=== PATIENT | female | born 1950 | race Caucasian/White ===

== ENCOUNTER 2018-11-16 17:28 | Inpatient (IN) ==
[2018-11-16 18:45] LABS: Basophils % 0.4 %; Eosinophils # 0.1 K/mcL (0.0-0.6); Eosinophils % 1.1 %; Hematocrit 34.5 % (35.3-44.9); Hemoglobin 10.7 g/dL (11.5-15.4); Immature Granulocytes % 0.4 % (0-4); Lymphocytes # 0.7 K/mcL (0.6-4.6); Lymphocytes % 9.6 %; Mean Corpuscular Hemoglobin 28.5 pg (28.0-33.3); Mean Corpuscular Volume 91.8 fL (83.0-100.0); Mean Platelet Volume 11.2 fL (9.4-12.4); Monocytes # 0.6 K/mcL (0.0-1.3); Neutrophils # 5.8 K/mcL (1.6-8.9); Platelet Count 162 K/mcL (140-400); Red Blood Count 3.76 M/mcL (3.82-4.97); Red Cell Distribution Width 17.4 % (11.5-14.5); Segmented Neutrophils % 80.5 %; White Blood Count 7.2 K/mcL (4.3-11.1)
[2018-11-16 19:05] LABS: Troponin I 0.03 ng/mL (< 0.04)
[2018-11-16 19:29] LABS: Albumin 3.5 g/dL (3.5-5.7); Albumin/Globulin Ratio 1.5 (1.1-2.2); Bilirubin,Direct 0.1 mg/dL (0.0-0.2); Bilirubin,Indirect 0.4 mg/dL (0.0-1.2); Bilirubin,Total 0.5 mg/dL (0.3-1.0); Calcium 9.2 mg/dL (8.6-10.3); Globulin 2.4 g/dL (2.4-3.5); Magnesium 2.3 mg/dL (1.6-2.6); Potassium 4.9 mEq/L (3.5-5.1); Thyroid Stimulating Hormone 6.422 mcIU/mL (0.340-5.600); Total Protein 5.9 g/dL (6.4-8.9)
[2018-11-16] MEDS ORDERED: Furosemide 40 MG/4 ML VIAL IVP ONE (19:40)
[2018-11-16 21:08] LABS: Triiodothyronine (T3) Total 0.65 ng/mL (0.87-1.78)
[2018-11-16 23:12] LABS: Bacteria,Urine Few per hpf (None-Few); Bilirubin,Urine Negative (Negative); Blood,Urine Moderate (Negative); Clarity,Urine Clear (Clear); Color,Urine Yellow (Yellow); Glucose,Urine (UA) 100 mg/dL (Normal); Hyaline Casts,Urine None Seen per lpf (None-Few); Ketones,Urine Negative (Negative); Leukocyte Esterase,Urine Negative (Negative); Nitrite,Urine Negative (Negative); Protein,Urine >=1000 mg/dL (Neg-Trace); Specific Gravity,Urine 1.015 (1.010-1.025); Squamous Epithelial Cell,Urine Many per lpf (None-Few); Urobilinogen,Urine Normal (Normal)
[2018-11-16 23:17] LABS: Amphetamine Screen,Urine Negative ng/mL (Cutoff=1000); Barbiturate Screen,Urine Negative ng/mL (Cutoff=200); Benzodiazepines Screen,Urine Negative ng/mL (Cutoff=200); Cannabinoid Screen,Urine Negative ng/mL (Cutoff = 50); Cocaine Screen,Urine Negative ng/mL (Cutoff= 300); Opiate Screen,Urine Negative ng/mL (Cutoff=300); Phencyclidine Screen,Urine Negative ng/mL (Cutoff=25)
[2018-11-16 23:27] LABS: RBC,Urine 0-3 per hpf (0-3)
[2018-11-17] MEDS ORDERED: Naloxone 0.4 MG/ML INJ IVP PRN (00:17)
[2018-11-17] MEDS ORDERED: *HR* Dextrose 50 % in Water (Syg) 50 ML SYRINGE IVP PRN (01:00)
[2018-11-17] MEDS ORDERED: D5% in Water 1,000 ML IVC PRN (01:00)
[2018-11-17] MEDS ORDERED: Dextrose Gel 15 GM/37.5 ML TUBE PO PRN ×2 (01:00)
[2018-11-17] MEDS: Nystatin POWDER 30 GM BOTTLE TP SCH ×4 (02:48→20:26)
[2018-11-17] MEDS: *HR* Heparin 5,000 UNIT/ML VIAL SQ SCH ×2 (05:28→18:26)
[2018-11-17 06:37] LABS: Hematocrit 33.7 % (35.3-44.9); Hemoglobin 10.6 g/dL (11.5-15.4); Mean Corpuscular HGB Conc 31.5 g/dL (31.6-35.5); Mean Corpuscular Volume 92.1 fL (83.0-100.0); Mean Platelet Volume 11.3 fL (9.4-12.4); Platelet Count 155 K/mcL (140-400); Red Blood Count 3.66 M/mcL (3.82-4.97); Red Cell Distribution Width 17.2 % (11.5-14.5); White Blood Count 6.8 K/mcL (4.3-11.1)
[2018-11-17 07:04] LABS: Calcium 8.8 mg/dL (8.6-10.3); Potassium 4.6 mEq/L (3.5-5.1); Troponin I 0.03 ng/mL (< 0.04)
[2018-11-17] MEDS: Insulin LISPRO 300 UNITS/3 ML VIAL SQ SCH ×4 (08:46→20:13)
[2018-11-17] MEDS: Aspirin Enteric Coated 81 MG Tablet PO SCH (08:54)
[2018-11-17] MEDS: Gabapentin 400 MG CAPSULE PO SCH ×2 (08:54→20:22)
[2018-11-17] MEDS ORDERED: OXYCODONE HCL 10 MG PO PRN (10:21)
[2018-11-17] MEDS: NIFEdipine XL (24 HR) 30 MG TAB.ER.24 PO SCH (11:43)
[2018-11-17] MEDS: Spironolactone 25 MG TABLET PO SCH (12:16)
[2018-11-17] MEDS ORDERED: Perflutren Lipid Microsphere 1.3 ML in 0.9 % Sodium Chloride 8.7 ML IVP ONE (13:39)
[2018-11-17] MEDS: *HR* OxyCODONE Immed Rel 5 MG TABLET PO PRN (18:26)
[2018-11-18] MEDS: *HR* OxyCODONE Immed Rel 5 MG TABLET PO PRN ×3 (00:13→16:41)
[2018-11-18] MEDS: *HR* Heparin 5,000 UNIT/ML VIAL SQ SCH ×2 (05:02→16:40)
[2018-11-18] MEDS: Insulin LISPRO 300 UNITS/3 ML VIAL SQ SCH ×4 (08:15→21:38)
[2018-11-18] MEDS: NIFEdipine XL (24 HR) 30 MG TAB.ER.24 PO SCH (08:25)
[2018-11-18] MEDS: Gabapentin 400 MG CAPSULE PO SCH ×2 (08:25→21:39)
[2018-11-18] MEDS: Spironolactone 25 MG TABLET PO SCH (08:25)
[2018-11-18] MEDS: Aspirin Enteric Coated 81 MG Tablet PO SCH (08:25)
[2018-11-18] MEDS: Nystatin POWDER 30 GM BOTTLE TP SCH ×3 (08:30→21:43)
[2018-11-19] MEDS: *HR* Heparin 5,000 UNIT/ML VIAL SQ SCH ×2 (05:49→16:45)
[2018-11-19] MEDS: Insulin LISPRO 300 UNITS/3 ML VIAL SQ SCH ×4 (08:29→23:29)
[2018-11-19] MEDS: NIFEdipine XL (24 HR) 30 MG TAB.ER.24 PO SCH (08:56)
[2018-11-19] MEDS: Nystatin POWDER 30 GM BOTTLE TP SCH ×3 (08:57→21:11)
[2018-11-19] MEDS: Spironolactone 25 MG TABLET PO SCH (08:57)
[2018-11-19] MEDS: Aspirin Enteric Coated 81 MG Tablet PO SCH (08:57)
[2018-11-19] MEDS: Gabapentin 400 MG CAPSULE PO SCH ×2 (08:57→21:07)
[2018-11-19] MEDS: *HR* OxyCODONE Immed Rel 5 MG TABLET PO PRN ×2 (09:01→23:32)
[2018-11-19 12:15] LABS: Potassium 4.5 mEq/L (3.5-5.1)
[2018-11-20] MEDS: *HR* Heparin 5,000 UNIT/ML VIAL SQ SCH (06:41)
[2018-11-20 07:31] VITALS: BP 180/80
[2018-11-20] MEDS: NIFEdipine XL (24 HR) 30 MG TAB.ER.24 PO SCH (08:23)
[2018-11-20] MEDS: Aspirin Enteric Coated 81 MG Tablet PO SCH (08:24)
[2018-11-20] MEDS: Gabapentin 400 MG CAPSULE PO SCH (08:24)
[2018-11-20] MEDS: Spironolactone 25 MG TABLET PO SCH (08:25)
[2018-11-20] MEDS: *HR* OxyCODONE Immed Rel 5 MG TABLET PO PRN (08:30)
[2018-11-20] MEDS: Insulin LISPRO 300 UNITS/3 ML VIAL SQ SCH (08:32)
[2018-11-20] MEDS ORDERED: Furosemide 40 MG TABLET PO SCH (09:00)
== END 2018-11-20 11:09 | DRG 291 ==
LOC: EMEROOARM 17:28 → 2ANU 17:28 → SUATTDRO 20:39 → 2ANU 20:58
PROVIDERS: ADMIT Family Medicine; ATTEND Internal Medicine

== ENCOUNTER 2018-12-01 10:13 | Inpatient (IN) ==
[2018-12-01 10:55] LABS: Basophils % 0.4 %; Eosinophils # 0.2 K/mcL (0.0-0.6); Eosinophils % 2.5 %; Hematocrit 35.1 % (35.3-44.9); Hemoglobin 10.9 g/dL (11.5-15.4); Immature Granulocytes % 0.3 % (0-4); Lymphocytes # 0.6 K/mcL (0.6-4.6); Lymphocytes % 6.5 %; Mean Corpuscular HGB Conc 31.1 g/dL (31.6-35.5); Mean Corpuscular Hemoglobin 29.1 pg (28.0-33.3); Mean Corpuscular Volume 93.9 fL (83.0-100.0); Mean Platelet Volume 11.1 fL (9.4-12.4); Monocytes # 0.8 K/mcL (0.0-1.3); Monocytes % 8.3 %; Neutrophils # 7.7 K/mcL (1.6-8.9); Platelet Count 210 K/mcL (140-400); Red Blood Count 3.74 M/mcL (3.82-4.97); Red Cell Distribution Width 17.1 % (11.5-14.5); White Blood Count 9.4 K/mcL (4.3-11.1)
--- NOTE | 2018-12-01 11:00 | Emergency Department Note ---
Disposition Clinical Impression: Rectal bleeding CKD (chronic kidney disease) Qualifiers: Chronic kidney disease stage: unspecified stage Qualified Code(s): N18.9 - Chr onic kidney disease, unspecified Disposition: Admitted As Inpatient Condition: Good Referrals: Renetta Jaime MD [Primary Care Provider] - Forms: ED Satisfaction Letter Time of Disposition: 12:47 General Adult HPI - General Chief complaint: ED GI Bleed Stated complaint: Rectal Bleeding Time Seen by Provider: 12/01/18 10:16 Source: patient, family Mode of arrival: ambulatory Limitations: no limitations Nursing Notes Reviewed: Yes Vital Signs Reviewed: Yes - History of Present Illness HPI Narrative: 68-year-old female with significant past medical history of peptic ulcer disease and CHF presenting for rectal bleeding. Patient is currently on aspirin. She states yesterday she went to the bathroom and noticed bright red blood on the paper. Then she looked in the toilet and there was a significant amount of blood in the toilet. She states since then it has been leaking out of her rectum. Denies any clots. She does states she has had some dizziness since but denies any chest pain or shortness of breath. Denies any abdominal pain, nausea, or hemataemesis. Pain Scale: 1 - Related Data Home Medications Medication Instructions Recorded Confirmed Allopurinol [Zyloprim 100 MG] 100 mg PO DAILY 11/16/18 12/01/18 Aspirin [Lo-Dose Aspirin EC] 81 mg PO DAILY 11/16/18 12/01/18 Atorvastatin Calcium [Lipitor] 40 mg PO DAILY 11/16/18 12/01/18 Duloxetine HCl [Cymbalta] 60 mg PO DAILY 11/16/18 12/01/18 Furosemide [Lasix] 80 mg PO QAM 11/16/18 12/01/18 Gabapentin [Neurontin] 800 mg PO BID 11/16/18 12/01/18 NIFEdipine [Nifedipine ER] 90 mg PO DAILY 11/16/18 12/01/18 Nebivolol HCl [Bystolic] 20 mg PO DAILY 11/16/18 12/01/18 Olmesartan Medoxomil [Benicar] 40 mg PO DAILY 11/16/18 12/01/18 Spironolactone [Aldactone] 25 mg PO DAILY 11/16/18 12/01/18 Doxercalciferol [Hectorol] 2.5 mcg IV MOWEFR 11/17/18 12/01/18 Oxycodone HCl [Roxybond] 10 mg PO Q6H 11/17/18 12/01/18 Multivit-Min/Iron/Vitamin K [Adult 1 each PO 12/01/18 Multivitamin-Iron Tablet] Previous Rx's Medication Instructions Recorded Omeprazole [PriLOSEC] 20 mg PO DAILY #20 capsule. 11/20/18 Allergies Allergy/AdvReac Type Severity Reaction Status Date / Time Iodinated Contrast Media Allergy Hives Verified 11/16/18 18:16 [Iodinated Contrast- Oral and IV Dye] morphine Allergy Swelling Verified 11/16/18 18:16 of Lip/Tongue/Throat prednisone Allergy Swelling Verified 11/16/18 18:16 of Lip/Tongue/Throat pregabalin [From Lyrica] Allergy Hallucinati Verified 11/16/18 18:16 ng All systems ED: reviewed and negative except as stated. Constitutional: Denies: fever Eyes: Reports: as per HPI ENT ED: Reports: as per HPI Cardiovascular: Denies: chest pain Respiratory: Denies: dyspnea Gastrointestinal: Denies: abdominal pain Genitourinary: Reports: as per HPI Musculoskeletal: Reports: as per HPI Integumentary: Reports: as per HPI Neurological: Reports: other (dizziness) Psychiatric: Reports: as per HPI Endocrine: Reports: as per HPI Hematological/Lymphatic: Reports: as per HPI Allergic/Immunologic: Reports: as per HPI Past Medical History - Past Medical History Attestation: Yes The following information was validated with the patient. Medical history: Reports: CHF, diabetes, hypertension, renal disease - Social History Smoking Status: Never smoker Smokeless Tobacco Status: No Alcohol use: Reports: none Drug use: Reports: none Physical Exam - General Limitations: no limitations General appearance: alert, in no apparent distress - Head Head exam: atraumatic, normocephalic, normal inspection - Eye Eye exam: Absent: scleral icterus - ENT ENT exam: mucous membranes moist - Neck Neck exam: Present: full ROM - Chest Chest inspection: Present: symmetric chest wall rise - Respiratory Respiratory exam: Present: normal lung sounds bilaterally. Absent: respiratory distress, wheezes - Cardiovascular Cardiovascular exam: Present: regular rate, normal rhythm, normal heart sounds - Abdominal Exam Abdominal exam: Present: soft, Non-Tender. Absent: distention, guarding, rebound - Extremities Exam Extremities exam: Present: full ROM, other (2+ pitting edema bilateral lower extremities. Blistering noted to the bilateral anterior shins.) - Neurological Exam Neurological exam: Present: alert, oriented X3 - Psychiatric Psychiatric exam: Present: normal affect - Skin Skin exam: Present: warm Course Course Narrative: 68-year-old female presenting for rectal bleeding. In the room she is alert and oriented 3 and hemodynamically stable. Physical exam does show renee blood per rectum. Otherwise physical exam is benign. At this time will obtain basic laboratory analysis and recheck out to surgery senior contracts manager. I spoke with Dr. Cardoso who is on-call who is requesting a nuclear medicine scan for GI bleed. This will be added. Disposition will be admission pending laboratory analysis. Patient agrees with this plan. - Reevaluation(s) Reevaluation #1: Hemoglobin stable at 10.9. Otherwise laboratory analysis unchanged from baseline. Nuclear medicine GI bleed scan still pending. At this time patient remains alert and oriented 3 and hemodynamically stable. We will plan to admit the patient for further evaluation and treatment of her rectal bleeding. I spoke with the hospitalist senior contracts manager Dr. Phan who agrees to accept the patient at this time. Patient agrees with this plan. Vital Signs Temperature 95 F L 12/01/18 10:15 Pulse Rate 63 12/01/18 10:15 Respiratory Rate 18 12/01/18 10:15 Blood Pressure 183/84 12/01/18 10:15 O2 Sat by Pulse Oximetry 97 12/01/18 10:15 Temperature 98.7 F 12/01/18 10:21 Pulse Rate 63 12/01/18 10:21 Respiratory Rate 18 12/01/18 10:21 Blood Pressure 183/84 12/01/18 10:21 O2 Sat by Pulse Oximetry 95 12/01/18 10:21 Oxygen Delivery Oxygen Delivery Room Air Medical Decision Making - Lab Data Result diagrams: 12/01/18 10:35 12/01/18 10:35 Lab Results 12/01/18 12/01/18 12/01/18 Range/Units 10:24 10:35 10:35 WBC 9.4 (4.3-11.1) K/mcL RBC 3.74 L (3.82-4.97) M/mcL Hgb 10.9 L (11.5-15.4) g/dL Hct 35.1 L (35.3-44.9) % MCV 93.9 (83.0-100.0) fL MCH 29.1 (28.0-33.3) pg MCHC 31.1 L (31.6-35.5) g/dL RDW 17.1 H (11.5-14.5) % Plt Count 210 (140-400) K/mcL MPV 11.1 (9.4-12.4) fL Immature Gran % 0.3 (0-4) % Seg Neutrophils % 82.0 % Lymphocytes % 6.5 % Monocytes % 8.3 % Eosinophils % 2.5 % Basophils % 0.4 % Neutrophils # 7.7 (1.6-8.9) K/mcL Lymphocytes # 0.6 (0.6-4.6) K/mcL Monocytes # 0.8 (0.0-1.3) K/mcL Eosinophils # 0.2 (0.0-0.6) K/mcL Basophils # 0.0 (0.0-0.2) K/mcL Sodium (136-145) mEq/L Potassium (3.5-5.1) mEq/L Chloride (98-107) mEq/L Carbon Dioxide (23-29) mEq/L BUN (8-23) mg/dL Creatinine (0.60-1.20) mg/dL Est GFR ( Amer) (> 60) Est GFR (Non-Af Amer) (> 60) BUN/Creatinine Ratio (6-26) Glucose (70-105) mg/dL POC Glucose 177 H (70-99) mg/dL Calculated Osmolality (280-300) Calcium (8.6-10.3) mg/dL Total Bilirubin (0.3-1.0) mg/dL Direct Bilirubin (0.0-0.2) mg/dL Indirect Bilirubin (0.0-1.2) mg/dL AST (13-39) Units/L ALT (7-52) Units/L Alkaline Phosphatase (34-104) Units/L Serum Total Protein (6.4-8.9) g/dL Albumin (3.5-5.7) g/dL Globulin (2.4-3.5) g/dL Albumin/Globulin Ratio (1.1-2.2) Blood Type B POSITIVE Antibody Screen POSITIVE 12/01/18 Range/Units 10:35 WBC (4.3-11.1) K/mcL RBC (3.82-4.97) M/mcL Hgb (11.5-15.4) g/dL Hct (35.3-44.9) % MCV (83.0-100.0) fL MCH (28.0-33.3) pg MCHC (31.6-35.5) g/dL RDW (11.5-14.5) % Plt Count (140-400) K/mcL MPV (9.4-12.4) fL Immature Gran % (0-4) % Seg Neutrophils % % Lymphocytes % % Monocytes % % Eosinophils % % Basophils % % Neutrophils # (1.6-8.9) K/mcL Lymphocytes # (0.6-4.6) K/mcL Monocytes # (0.0-1.3) K/mcL Eosinophils # (0.0-0.6) K/mcL Basophils # (0.0-0.2) K/mcL Sodium 136 (136-145) mEq/L Potassium 5.4 H (3.5-5.1) mEq/L Chloride 104 (98-107) mEq/L Carbon Dioxide 24 (23-29) mEq/L BUN 47 H (8-23) mg/dL Creatinine 2.91 H (0.60-1.20) mg/dL Est GFR ( Amer) 19 L (> 60) Est GFR (Non-Af Amer) 16 L (> 60) BUN/Creatinine Ratio 16 (6-26) Glucose 182 H (70-105) mg/dL POC Glucose (70-99) mg/dL Calculated Osmolality 299 (280-300) Calcium 9.2 (8.6-10.3) mg/dL Total Bilirubin 0.5 (0.3-1.0) mg/dL Direct Bilirubin 0.1 (0.0-0.2) mg/dL Indirect Bilirubin 0.4 (0.0-1.2) mg/dL AST 12 L (13-39) Units/L ALT 9 (7-52) Units/L Alkaline Phosphatase 82 (34-104) Units/L Serum Total Protein 6.3 L (6.4-8.9) g/dL Albumin 3.5 (3.5-5.7) g/dL Globulin 2.8 (2.4-3.5) g/dL Albumin/Globulin Ratio 1.3 (1.1-2.2) Blood Type Antibody Screen - EKG Data EKG #1 EKG attestation: Yes I reviewed and interpreted this EKG. EKG results narrative: Sinus rhythm. Right bundle branch block. 63 beats for minute. MS interval 170, QRS 139, QTC 501. No sign of acute ST segment elevation or ischemia. Compared to previous EKG completed on 11/16/2018 no significant changes noted
[2018-12-01 11:13] LABS: Albumin 3.5 g/dL (3.5-5.7); Albumin/Globulin Ratio 1.3 (1.1-2.2); Bilirubin,Direct 0.1 mg/dL (0.0-0.2); Bilirubin,Indirect 0.4 mg/dL (0.0-1.2); Bilirubin,Total 0.5 mg/dL (0.3-1.0); Calcium 9.2 mg/dL (8.6-10.3); Globulin 2.8 g/dL (2.4-3.5); Potassium 5.4 mEq/L (3.5-5.1); Total Protein 6.3 g/dL (6.4-8.9)
--- NOTE | 2018-12-01 12:30 | Emergency Department Note ---
Disposition Clinical Impression: Rectal bleeding CKD (chronic kidney disease) Qualifiers: Chronic kidney disease stage: unspecified stage Qualified Code(s): N18.9 - Chr onic kidney disease, unspecified Disposition: Admitted As Inpatient Condition: Good Referrals: Renetta Jaime MD [Primary Care Provider] - Forms: ED Satisfaction Letter Time of Disposition: 12:30 General Adult HPI - General Chief complaint: ED GI Bleed Stated complaint: Rectal Bleeding Time Seen by Provider: 12/01/18 10:16 Source: patient, family Mode of arrival: ambulatory Limitations: no limitations - History of Present Illness Pain Scale: 1 - Related Data Home Medications Medication Instructions Recorded Confirmed Allopurinol [Zyloprim 100 MG] 100 mg PO DAILY 11/16/18 11/17/18 Aspirin [Lo-Dose Aspirin EC] 81 mg PO DAILY 11/16/18 11/17/18 Atorvastatin Calcium [Lipitor] 40 mg PO DAILY 11/16/18 11/17/18 Duloxetine HCl [Cymbalta] 60 mg PO DAILY 11/16/18 11/17/18 Furosemide [Lasix] 80 mg PO QAM 11/16/18 11/17/18 Gabapentin [Neurontin] 800 mg PO BID 11/16/18 11/17/18 Glimepiride [Amaryl] 4 mg PO BID 11/16/18 11/17/18 NIFEdipine [Nifedipine ER] 90 mg PO DAILY 11/16/18 11/17/18 Nebivolol HCl [Bystolic] 20 mg PO DAILY 11/16/18 11/17/18 Olmesartan Medoxomil [Benicar] 40 mg PO DAILY 11/16/18 11/17/18 Spironolactone [Aldactone] 25 mg PO DAILY 11/16/18 11/17/18 Sucralfate [Carafate] 1 gm PO TID 11/16/18 11/17/18 Doxercalciferol [Hectorol] 2.5 mcg IV MOWEFR 11/17/18 11/17/18 Oxycodone HCl [Roxybond] 10 mg PO Q6H PRN 11/17/18 11/17/18 Previous Rx's Medication Instructions Recorded Nystatin POWDER [Nystop] 1 appl TP TID #2 bottle 11/20/18 Omeprazole [PriLOSEC] 20 mg PO DAILY #20 capsule. 11/20/18 OxyCODONE Immed Rel [Roxicodone 10 10 mg PO Q6HR PRN 5 Days #20 tab 11/20/18 MG] Allergies Allergy/AdvReac Type Severity Reaction Status Date / Time Iodinated Contrast Media Allergy Hives Verified 11/16/18 18:16 [Iodinated Contrast- Oral and IV Dye] morphine Allergy Swelling Verified 11/16/18 18:16 of Lip/Tongue/Throat prednisone Allergy Swelling Verified 11/16/18 18:16 of Lip/Tongue/Throat pregabalin [From Lyrica] Allergy Hallucinati Verified 11/16/18 18:16 ng Constitutional: Denies: fever Eyes: Reports: as per HPI ENT ED: Reports: as per HPI Cardiovascular: Denies: chest pain Respiratory: Denies: dyspnea Gastrointestinal: Denies: abdominal pain Genitourinary: Reports: as per HPI Musculoskeletal: Reports: as per HPI Integumentary: Reports: as per HPI Neurological: Reports: other (dizziness) Psychiatric: Reports: as per HPI Endocrine: Reports: as per HPI Hematological/Lymphatic: Reports: as per HPI Allergic/Immunologic: Reports: as per HPI Past Medical History - Past Medical History Medical history: Reports: CHF, diabetes, hypertension, renal disease - Social History Smoking Status: Never smoker Smokeless Tobacco Status: No Alcohol use: Reports: none Drug use: Reports: none Physical Exam - General Limitations: no limitations General appearance: alert, in no apparent distress Course Vital Signs Temperature 95 F L 12/01/18 10:15 Pulse Rate 63 12/01/18 10:15 Respiratory Rate 18 12/01/18 10:15 Blood Pressure 183/84 12/01/18 10:15 O2 Sat by Pulse Oximetry 97 12/01/18 10:15 Temperature 98.7 F 12/01/18 10:21 Pulse Rate 63 12/01/18 10:21 Respiratory Rate 18 12/01/18 10:21 Blood Pressure 183/84 12/01/18 10:21 O2 Sat by Pulse Oximetry 95 12/01/18 10:21 Oxygen Delivery Oxygen Delivery Room Air Medical Decision Making - Lab Data Result diagrams: 12/01/18 10:35 12/01/18 10:35 Lab Results 12/01/18 12/01/18 12/01/18 Range/Units 10:24 10:35 10:35 WBC 9.4 (4.3-11.1) K/mcL RBC 3.74 L (3.82-4.97) M/mcL Hgb 10.9 L (11.5-15.4) g/dL Hct 35.1 L (35.3-44.9) % MCV 93.9 (83.0-100.0) fL MCH 29.1 (28.0-33.3) pg MCHC 31.1 L (31.6-35.5) g/dL RDW 17.1 H (11.5-14.5) % Plt Count 210 (140-400) K/mcL MPV 11.1 (9.4-12.4) fL Immature Gran % 0.3 (0-4) % Seg Neutrophils % 82.0 % Lymphocytes % 6.5 % Monocytes % 8.3 % Eosinophils % 2.5 % Basophils % 0.4 % Neutrophils # 7.7 (1.6-8.9) K/mcL Lymphocytes # 0.6 (0.6-4.6) K/mcL Monocytes # 0.8 (0.0-1.3) K/mcL Eosinophils # 0.2 (0.0-0.6) K/mcL Basophils # 0.0 (0.0-0.2) K/mcL Sodium (136-145) mEq/L Potassium (3.5-5.1) mEq/L Chloride (98-107) mEq/L Carbon Dioxide (23-29) mEq/L BUN (8-23) mg/dL Creatinine (0.60-1.20) mg/dL Est GFR ( Amer) (> 60) Est GFR (Non-Af Amer) (> 60) BUN/Creatinine Ratio (6-26) Glucose (70-105) mg/dL POC Glucose 177 H (70-99) mg/dL Calculated Osmolality (280-300) Calcium (8.6-10.3) mg/dL Total Bilirubin (0.3-1.0) mg/dL Direct Bilirubin (0.0-0.2) mg/dL Indirect Bilirubin (0.0-1.2) mg/dL AST (13-39) Units/L ALT (7-52) Units/L Alkaline Phosphatase (34-104) Units/L Serum Total Protein (6.4-8.9) g/dL Albumin (3.5-5.7) g/dL Globulin (2.4-3.5) g/dL Albumin/Globulin Ratio (1.1-2.2) Blood Type B POSITIVE Antibody Screen POSITIVE 12/01/18 Range/Units 10:35 WBC (4.3-11.1) K/mcL RBC (3.82-4.97) M/mcL Hgb (11.5-15.4) g/dL Hct (35.3-44.9) % MCV (83.0-100.0) fL MCH (28.0-33.3) pg MCHC (31.6-35.5) g/dL RDW (11.5-14.5) % Plt Count (140-400) K/mcL MPV (9.4-12.4) fL Immature Gran % (0-4) % Seg Neutrophils % % Lymphocytes % % Monocytes % % Eosinophils % % Basophils % % Neutrophils # (1.6-8.9) K/mcL Lymphocytes # (0.6-4.6) K/mcL Monocytes # (0.0-1.3) K/mcL Eosinophils # (0.0-0.6) K/mcL Basophils # (0.0-0.2) K/mcL Sodium 136 (136-145) mEq/L Potassium 5.4 H (3.5-5.1) mEq/L Chloride 104 (98-107) mEq/L Carbon Dioxide 24 (23-29) mEq/L BUN 47 H (8-23) mg/dL Creatinine 2.91 H (0.60-1.20) mg/dL Est GFR ( Amer) 19 L (> 60) Est GFR (Non-Af Amer) 16 L (> 60) BUN/Creatinine Ratio 16 (6-26) Glucose 182 H (70-105) mg/dL POC Glucose (70-99) mg/dL Calculated Osmolality 299 (280-300) Calcium 9.2 (8.6-10.3) mg/dL Total Bilirubin 0.5 (0.3-1.0) mg/dL Direct Bilirubin 0.1 (0.0-0.2) mg/dL Indirect Bilirubin 0.4 (0.0-1.2) mg/dL AST 12 L (13-39) Units/L ALT 9 (7-52) Units/L Alkaline Phosphatase 82 (34-104) Units/L Serum Total Protein 6.3 L (6.4-8.9) g/dL Albumin 3.5 (3.5-5.7) g/dL Globulin 2.8 (2.4-3.5) g/dL Albumin/Globulin Ratio 1.3 (1.1-2.2) Blood Type Antibody Screen Attestation Statement - Attestation Attestation: I examined this patient and my medical decision-making was reviewed with the Resident Physician. I agree with the documented findings, disposition and treatment plan as described except to the extent set forth below. Patient presented with painless rectal bleeding. No history of similar episodes in the past. Has had an upper GI bleed from an ulcer in the past, but no prior rectal bleeding. Has not had melena. No history of hemorrhoids or diverticulosis. No abdominal tenderness on my exam. Hemodynamic normal. Not on any anticoagulants. Patient to be admitted for further evaluation.
[2018-12-01] MEDS ORDERED: Naloxone 0.4 MG/ML INJ IVP PRN (12:50)
[2018-12-01] MEDS ORDERED: Ondansetron 4 MG/2 ML VIAL IVP PRN (12:50)
--- NOTE | 2018-12-01 13:12 | Internal Med History&Physical ---
Date of Encounter: 12/01/18 Time of Encounter: 12:45 Internal Medicine - H&P: HPI Chief complaint: BRBPR Admitted From: Home History of present illness: Ms. John is a 68 year old female with PMHx of CKD stage 4, HFpEF, PUD, HTN, morbid obesity, pulmonary HTN, who presented to the ED with BRBPR. Started yesterday, ~ 4 episodes so far, occurring on every single BM she has had since yesterday. Denies any melena, hematemesis, or hemoptysis. No chest pain, SOB, lightheadedness, N/V, abdominal pain, or dysuria. Pt states that she had EGD/colonoscopy done in 04/2018 that was significant for bleeding ulcer. No fever/chills, cough, sputum production, or new joint pain/rash. In the ED, she was afebrile and hemodynamically stable. Workup showed hemoglobin of 10.9 (baseline), potassium of 5.4, creatinine 2.91 (unchanged from prior). Patient had tagged RBC scan done and admitted for further management with surgical consultation. Past Med Surg Social Fam HX - Past Medical History Attestation: Yes The following information was validated with the patient. Medical history: CHF, diabetes, hypertension, renal disease Additional medical history: PUD - Past Surgical History Additional surgical history: L foot surgery, bilat wrist surgery, bilat knee replacement - Social History Smoking Status: Never smoker Smokeless Tobacco Status: No Alcohol use: none Drug use: none - Family History Mother Hx Family Cardiac Disorders: Yes (heart attack father) Hx Family Respiratory Disorders: No Hx Family Cancer: No Hx Family GI Disorders: No Hx Family Endocrine Disorder: Yes (DM mother) Hx Family Neuromuscular Disorders: No Hx Family Neurologic Disorders: No Hx Family HEENT Disorders: No Hx Family Autoimmune Disorders: No Father Hx Family Cardiac Disorders: Yes (Heart disease) Internal Medicine - H&P: Meds Allopurinol [Zyloprim 100 MG] 100 mg PO DAILY 11/16/18 [History] Aspirin [Lo-Dose Aspirin EC] 81 mg PO DAILY 11/16/18 [History] Atorvastatin Calcium [Lipitor] 40 mg PO DAILY 11/16/18 [History] Duloxetine HCl [Cymbalta] 60 mg PO DAILY 11/16/18 [History] Furosemide [Lasix] 80 mg PO QAM 11/16/18 [History] Gabapentin [Neurontin] 800 mg PO BID 11/16/18 [History] NIFEdipine [Nifedipine ER] 90 mg PO DAILY 11/16/18 [History] Nebivolol HCl [Bystolic] 20 mg PO DAILY 11/16/18 [History] Olmesartan Medoxomil [Benicar] 40 mg PO DAILY 11/16/18 [History] Spironolactone [Aldactone] 25 mg PO DAILY 11/16/18 [History] Doxercalciferol [Hectorol] 2.5 mcg IV MOWEFR 11/17/18 [History] Oxycodone HCl [Roxybond] 10 mg PO Q6H 11/17/18 [History] Omeprazole [PriLOSEC] 20 mg PO DAILY #20 capsule. 11/20/18 [Rx] Multivit-Min/Iron/Vitamin K [Adult Multivitamin-Iron Tablet] 1 each PO 12/01/18 [History] Allergy/AdvReac Type Severity Reaction Status Date / Time Iodinated Contrast Media Allergy Hives Verified 11/16/18 18:16 [Iodinated Contrast- Oral and IV Dye] morphine Allergy Swelling Verified 11/16/18 18:16 of Lip/Tongue/Throat prednisone Allergy Swelling Verified 11/16/18 18:16 of Lip/Tongue/Throat pregabalin [From Lyrica] Allergy Hallucinati Verified 11/16/18 18:16 ng All Systems PM: A 10-system review of systems was performed and is negative for pertinent findings except as documented above in the HPI. - Constitutional Vitals: Temp Pulse Resp BP Pulse Ox 98.7 F 63 18 183/84 95 12/01/18 10:21 12/01/18 10:21 12/01/18 10:21 12/01/18 10:21 12/01/18 10:21 Exam: General: Alert and oriented, not in acute distress. Morbidly obese female HEENT:EOMI, pupils equal, round and reactive. Cardiovascular:Normal S1 & S2, No JVD. Pulse regular. Lungs: clear to auscultation, no wheezes/rales Abdomen:Soft, non-tender, no rigidity. Declines rectal exam Extremities: Old scars in bilateral feet without evidence of infection Neurological:Normal cognition and motor skills. Non-focal Skin:Normal color, no rash, no lesions. Pulses:Carotid and radial pulses normal +2. Rest of the physical exam is non contributory Internal Med - H&P Results - Labs CBC & Chem 7: 12/01/18 10:35 12/01/18 10:35 Labs: Short CBC 12/01/18 Range/Units 10:35 WBC 9.4 (4.3-11.1) K/mcL Hgb 10.9 L (11.5-15.4) g/dL Hct 35.1 L (35.3-44.9) % Plt Count 210 (140-400) K/mcL Neutrophils # 7.7 (1.6-8.9) K/mcL BMP 12/01/18 10:35 Sodium 136 Potassium 5.4 H Chloride 104 Carbon Dioxide 24 BUN 47 H Creatinine 2.91 H Glucose 182 H Calcium 9.2 Liver Function 12/01/18 Range/Units 10:35 Total Bilirubin 0.5 (0.3-1.0) mg/dL Direct Bilirubin 0.1 (0.0-0.2) mg/dL AST 12 L (13-39) Units/L ALT 9 (7-52) Units/L Alkaline Phosphatase 82 (34-104) Units/L Albumin 3.5 (3.5-5.7) g/dL - Impressions ITS Impressions GI Bleed Scan Nuclear Medicine 12/01/18 10:37 IMPRESSION: No evidence of active GI bleeding during acquisition. RECOMMENDATIONS: If the patient shows hemodynamic signs of an active bleed in the next 20 hours, additional images can be acquired. D/ / Yovani Tiwari MD / Yovani Tiwari MD Interpreting Provider: Yovani Tiwari MD - Assessment and Plan (1) Rectal bleeding Current Visit: Yes Status: Acute Assessment and plan: Appears to be from lower GI tract but pt does have history of bleeding PUD per record Hb is however better than the time she was discharged and she is also hemodynamically stable, less likely to be brisk UBGIT start PPI BID, trend H&H hold off on ASA tagged RBC scan done, report pending NPO for now, surgery consulted in the ED will try to obtain records from [facility] regarding prior EGD/colonoscopy (2) Peptic ulcer disease Current Visit: No Status: Chronic Assessment and plan: IV PPI as above (3) CKD (chronic kidney disease) Current Visit: Yes Status: Chronic Assessment and plan: Creatinine at her baseline resume home dose of lasix avoid nephrotoxins Qualifiers: Chronic kidney disease stage: stage 4 (severe) Qualified Code(s): N18.4 - Chronic kidney disease, stage 4 (severe) (4) Hypertension Current Visit: No Status: Chronic Assessment and plan: Resume home meds Qualifiers: Hypertension type: essential hypertension Qualified Code(s): I10 - Essential (primary) hypertension (5) Morbid obesity with BMI of 45.0-49.9, adult Current Visit: No Status: Chronic Assessment and plan: Lifestyle modifications emphasized (6) DVT prophylaxis Current Visit: No Status: Acute Assessment and plan: EPCD - Time Spent With Patient Total time spent is greater than 50% in coordination of care (as documented) at patient's floor/unit and/or counseling patient: 25 - 35 minutes
[2018-12-01] MEDS: *HR* OxyCODONE Immed Rel 5 MG TABLET PO PRN ×2 (14:25→20:47)
[2018-12-01] MEDS: Pantoprazole 40 MG VIAL IVP SCH ×2 (14:25→17:59)
--- NOTE | 2018-12-01 16:12 | AcuteCare Surgery Consult Note ---
Date of Encounter: 12/01/18 Time of Encounter: 16:00 Assessment and Plan (1) Rectal bleeding Current Visit: Yes Status: Acute No active bleeding identified. Unremarkable colonoscopy 6 months ago. No acute endoscopy is recommended. Since she had a negative bleeding scan this morning, if she does have a rebleed episode a repeat nuclear medicine scan can be performed all the radioactive tracer is still in her system. Because to follow along with you History of Present Illness Consult date: 12/01/18 Reason for consult: other (Bright red blood per rectum) History of present illness: The patient is a 68-year-old female who developed several episodes of bright red rectal bleeding this morning. She sought evaluation in the emergency department. He was noted that her hematocrit was 34% and she passed visible bright red blood in the emergency room. The patient was evaluated with bleeding scan. No acute bleeding was identified. The patient can be rescanned within 24 hours if she rebleeds. The patient had upper and lower endoscopy in [place] 6 months ago. The colon was reported as normal. The patient did have a upper gastrointestinal ulcer. This was treated appropriately. At this point the patient is not actively bleeding and had a negative colonoscopy 6 months ago. I would recommend a period of observation and serial hemoglobin and hematocrit testing. If the patient rebleeds a repeat bleeding scan can be performed. This would p robably be the most sensitive approach for clinically significant bleeding. Past Med Surg Social Fam HX - Past Medical History Medical history: CHF, diabetes, hypertension, renal disease Additional medical history: PUD - Past Surgical History Additional surgical history: L foot surgery, bilat wrist surgery, bilat knee replacement - Social History Smoking Status: Never smoker Smokeless Tobacco Status: No Alcohol use: none Drug use: none - Family History Mother Hx Family Cardiac Disorders: Yes (heart attack father) Hx Family Respiratory Disorders: No Hx Family Cancer: No Hx Family GI Disorders: No Hx Family Endocrine Disorder: Yes (DM mother) Hx Family Neuromuscular Disorders: No Hx Family Neurologic Disorders: No Hx Family HEENT Disorders: No Hx Family Autoimmune Disorders: No Father Hx Family Cardiac Disorders: Yes (Heart disease) Medications and Allergies Allopurinol [Zyloprim 100 MG] 100 mg PO DAILY 11/16/18 [History] Aspirin [Lo-Dose Aspirin EC] 81 mg PO DAILY 11/16/18 [History] Atorvastatin Calcium [Lipitor] 40 mg PO HS 11/16/18 [History] Furosemide [Lasix] 80 mg PO QAM 11/16/18 [History] Gabapentin [Neurontin] 800 mg PO BID 11/16/18 [History] NIFEdipine [Nifedipine ER] 90 mg PO DAILY 11/16/18 [History] Olmesartan Medoxomil [Benicar] 40 mg PO DAILY 11/16/18 [History] Spironolactone [Aldactone] 25 mg PO DAILY 11/16/18 [History] Doxercalciferol [Hectorol] 2.5 mcg IV MOWEFR 11/17/18 [History] Omeprazole [PriLOSEC] 20 mg PO DAILY #20 capsule. 11/20/18 [Rx] Multivit-Min/Iron/Vitamin K [Adult Multivitamin-Iron Tablet] 1 tab PO DAILY 12/01/18 [History] Nebivolol HCl [Bystolic] 20 tab PO DAILY 12/01/18 [History] OxyCODONE ER (12 HR) [OxyCONTIN] 10 mg PO 0600,1200,1800,0000 12/01/18 [History] Allergy/AdvReac Type Severity Reaction Status Date / Time Iodinated Contrast Media Allergy Hives Verified 11/16/18 18:16 [Iodinated Contrast- Oral and IV Dye] morphine Allergy Swelling Verified 11/16/18 18:16 of Lip/Tongue/Throat prednisone Allergy Swelling Verified 11/16/18 18:16 of Lip/Tongue/Throat pregabalin [From Lyrica] Allergy Hallucinati Verified 11/16/18 18:16 ng Review of Systems All systems PM: The remainder of the systems were reviewed and are negative General Surgery Exam Initial Vital Signs Temp Pulse Resp BP Pulse Ox 95 F L 63 18 183/84 97 12/01/18 10:15 12/01/18 10:15 12/01/18 10:15 12/01/18 10:15 12/01/18 10:15 - General physical appearance well developed, well nourished, no distress - Respiratory normal expansion, normal respiratory effort, clear to percussion, clear to auscultation - Cardiovascular Cardiovascular exam: Present: RRR, no murmurs/rubs/gallops - Abdomen Abdomen general surgery: Present: bowel sounds present, soft, non tender - Neurologic Present: CN 2-12 grossly intact, normal coordination, normal sensation - Psychiatric Psychiatric general surgery: Present: appropriate, oriented to person, oriented to place, oriented to time, speech is normal, memory intact Exam Initial Vital Signs Temp Pulse Resp BP Pulse Ox 95 F L 63 18 183/84 97 12/01/18 10:15 12/01/18 10:15 12/01/18 10:15 12/01/18 10:15 12/01/18 10:15 Results - Labs 12/01/18 10:35 12/01/18 10:35 Abnormal lab results RBC 3.74 M/mcL (3.82-4.97) L 12/01/18 10:35 Hgb 10.9 g/dL (11.5-15.4) L 12/01/18 10:35 Hct 35.1 % (35.3-44.9) L 12/01/18 10:35 MCHC 31.1 g/dL (31.6-35.5) L 12/01/18 10:35 RDW 17.1 % (11.5-14.5) H 12/01/18 10:35 Potassium 5.4 mEq/L (3.5-5.1) H 12/01/18 10:35 BUN 47 mg/dL (8-23) H 12/01/18 10:35 Creatinine 2.91 mg/dL (0.60-1.20) H 12/01/18 10:35 Est GFR ( Amer) 19 (> 60) L 12/01/18 10:35 Est GFR (Non-Af Amer) 16 (> 60) L 12/01/18 10:35 Glucose 182 mg/dL (70-105) H 12/01/18 10:35 POC Glucose 177 mg/dL (70-99) H 12/01/18 10:24 AST 12 Units/L (13-39) L 12/01/18 10:35 Serum Total Protein 6.3 g/dL (6.4-8.9) L 12/01/18 10:35 Diabetes panel 12/01/18 Range/Units 10:35 Sodium 136 (136-145) mEq/L Potassium 5.4 H (3.5-5.1) mEq/L Chloride 104 (98-107) mEq/L Carbon Dioxide 24 (23-29) mEq/L BUN 47 H (8-23) mg/dL Creatinine 2.91 H (0.60-1.20) mg/dL Glucose 182 H (70-105) mg/dL Calcium 9.2 (8.6-10.3) mg/dL AST 12 L (13-39) Units/L ALT 9 (7-52) Units/L Alkaline Phosphatase 82 (34-104) Units/L Albumin 3.5 (3.5-5.7) g/dL Calcium panel 12/01/18 Range/Units 10:35 Calcium 9.2 (8.6-10.3) mg/dL Albumin 3.5 (3.5-5.7) g/dL Pituitary panel 12/01/18 Range/Units 10:35 Sodium 136 (136-145) mEq/L Potassium 5.4 H (3.5-5.1) mEq/L Chloride 104 (98-107) mEq/L Carbon Dioxide 24 (23-29) mEq/L BUN 47 H (8-23) mg/dL Creatinine 2.91 H (0.60-1.20) mg/dL Glucose 182 H (70-105) mg/dL Calcium 9.2 (8.6-10.3) mg/dL Adrenal panel 12/01/18 Range/Units 10:35 Sodium 136 (136-145) mEq/L Potassium 5.4 H (3.5-5.1) mEq/L Chloride 104 (98-107) mEq/L Carbon Dioxide 24 (23-29) mEq/L BUN 47 H (8-23) mg/dL Creatinine 2.91 H (0.60-1.20) mg/dL Glucose 182 H (70-105) mg/dL Calcium 9.2 (8.6-10.3) mg/dL Total Bilirubin 0.5 (0.3-1.0) mg/dL AST 12 L (13-39) Units/L ALT 9 (7-52) Units/L Alkaline Phosphatase 82 (34-104) Units/L Albumin 3.5 (3.5-5.7) g/dL All other labs normal. - Imaging Additional studies: I personally evaluated the bleeding scan. No active bleeding identified Consult Discharge Plan - Plan Referrals: Renetta Jaime MD [Primary Care Provider] -
[2018-12-01 17:26] LABS: Hematocrit 34.7 % (35.3-44.9)
--- NOTE | 2018-12-01 17:42 | Electrocardiograph Report ---
[place] [facility] Test Date: 2018-12-01 Pat Name: Sahra John Department: [id number] Room: 3B13 Gender: F Health Safety Coordinator: : 1950 Requested By: Soraida Ramesh Order Number: [id number] Reading MD: Ramesh Singh Measurements Intervals [place] Rate: 63 P: 28 FL: 170 QRS: -49 QRSD: 159 T: 9 QT: 489 QTc: 501 Interpretive Statements Sinus rhythm Right bundle branch block Anteroseptal infarct, age indeterminate Electronically Signed On 12-01-2018 17:40:59 EDT by Ramesh Singh
[2018-12-01] MEDS: Gabapentin 400 MG CAPSULE PO SCH (20:48)
[2018-12-02 05:20] LABS: Hematocrit 29.4 % (35.3-44.9); Mean Corpuscular Hemoglobin 29.4 pg (28.0-33.3); Mean Corpuscular Volume 94.8 fL (83.0-100.0); Mean Platelet Volume 11.3 fL (9.4-12.4); Platelet Count 164 K/mcL (140-400); Red Cell Distribution Width 16.8 % (11.5-14.5); White Blood Count 7.1 K/mcL (4.3-11.1)
[2018-12-02 05:21] LABS: Hemoglobin 9.1 g/dL (11.5-15.4)
[2018-12-02] MEDS: Pantoprazole 40 MG VIAL IVP SCH ×2 (05:36→17:08)
[2018-12-02 05:39] LABS: Calcium 8.9 mg/dL (8.6-10.3); Magnesium 2.1 mg/dL (1.6-2.6); Potassium 5.3 mEq/L (3.5-5.1)
[2018-12-02] MEDS: *HR* OxyCODONE Immed Rel 5 MG TABLET PO PRN ×3 (06:30→23:59)
[2018-12-02] MEDS ORDERED: D5% in 0.45% NACL 1,000 ML IVC SCH (08:00)
[2018-12-02] MEDS: NIFEdipine XL (24 HR) 30 MG TAB.ER.24 PO SCH (08:07)
[2018-12-02] MEDS: Metoprolol 100 MG TABLET PO SCH ×2 (08:07→20:30)
[2018-12-02] MEDS ORDERED: Spironolactone 25 MG TABLET PO SCH (09:00)
[2018-12-02] MEDS: Gabapentin 400 MG CAPSULE PO SCH ×2 (09:08→20:30)
[2018-12-02] MEDS: Furosemide 40 MG TABLET PO SCH (09:10)
--- NOTE | 2018-12-02 09:40 | AcuteCareSurgery Progress Note ---
Date of Encounter: 12/02/18 Time of Encounter: 07:40 - Assessment and Plan (1) Rectal bleeding Current Visit: Yes Status: Acute Recurrent rectal bleeding with anemia. We will plan colonoscopy 12/03/2018. Clear liquids today and nothing by mouth after midnight and MiraLAX bowel prep Subjective Narrative: The patient is seen and evaluated on morning rounds with the acute care surgery team. The patient had recurrent rectal bleeding despite recent negative colonoscopy evaluation. She has had a drop in her hematocrit from 34 down to 29%. Based on these new findings. We will plan colonoscopy bowel prep and colonoscopy on 12/03/2018. Clear liquids today and nothing by mouth after midnight and MiraLAX bowel prep Objective Vital Signs - Last 8 Hours Temp Pulse Resp BP Pulse Ox 12/02/18 07:03 98.6 F 55 19 157/70 96 12/02/18 05:24 97.7 F 54 14 128/65 97 Intake and Output 12/01/18 12/02/18 12/02/18 23:59 07:59 15:59 Other: Meal npo # Voids 1 Weight 132.6 kg Blood Glucose* 174 116 Patient Weight 12/02/18 23:59 Weight 132.6 kg - General physical appearance well developed, well nourished, no distress - Respiratory normal expansion, normal respiratory effort, clear to auscultation - Cardiovascular Cardiovascular exam: Present: RRR, no murmurs/rubs/gallops - Abdomen Abdomen: Present: bowel sounds present, soft, non tender - Neurologic normal coordination, normal sensation - Psychiatric oriented to time, oriented to person, oriented to place, speech is normal, memory intact - Labs 12/02/18 03:53 12/02/18 03:53 Diabetes panel 12/01/18 12/02/18 Range/Units 10:35 03:53 Sodium 136 138 (136-145) mEq/L Potassium 5.4 H 5.3 H (3.5-5.1) mEq/L Chloride 104 107 (98-107) mEq/L Carbon Dioxide 24 26 (23-29) mEq/L BUN 47 H 48 H (8-23) mg/dL Creatinine 2.91 H 2.78 H (0.60-1.20) mg/dL Glucose 182 H 122 H (70-105) mg/dL Calcium 9.2 8.9 (8.6-10.3) mg/dL AST 12 L (13-39) Units/L ALT 9 (7-52) Units/L Alkaline Phosphatase 82 (34-104) Units/L Albumin 3.5 (3.5-5.7) g/dL Calcium panel 12/01/18 12/02/18 Range/Units 10:35 03:53 Calcium 9.2 8.9 (8.6-10.3) mg/dL Albumin 3.5 (3.5-5.7) g/dL Pituitary panel 12/01/18 12/02/18 Range/Units 10:35 03:53 Sodium 136 138 (136-145) mEq/L Potassium 5.4 H 5.3 H (3.5-5.1) mEq/L Chloride 104 107 (98-107) mEq/L Carbon Dioxide 24 26 (23-29) mEq/L BUN 47 H 48 H (8-23) mg/dL Creatinine 2.91 H 2.78 H (0.60-1.20) mg/dL Glucose 182 H 122 H (70-105) mg/dL Calcium 9.2 8.9 (8.6-10.3) mg/dL Adrenal panel 12/01/18 12/02/18 Range/Units 10:35 03:53 Sodium 136 138 (136-145) mEq/L Potassium 5.4 H 5.3 H (3.5-5.1) mEq/L Chloride 104 107 (98-107) mEq/L Carbon Dioxide 24 26 (23-29) mEq/L BUN 47 H 48 H (8-23) mg/dL Creatinine 2.91 H 2.78 H (0.60-1.20) mg/dL Glucose 182 H 122 H (70-105) mg/dL Calcium 9.2 8.9 (8.6-10.3) mg/dL Total Bilirubin 0.5 (0.3-1.0) mg/dL AST 12 L (13-39) Units/L ALT 9 (7-52) Units/L Alkaline Phosphatase 82 (34-104) Units/L Albumin 3.5 (3.5-5.7) g/dL Consult Discharge Plan - Plan Referrals: Renetta Jaime MD [Primary Care Provider] - (Appointment has been requested. )
--- NOTE | 2018-12-02 10:36 | Internal Med Progress Note ---
Hospitalist Progress Note - Encounter Date of Encounter: 12/02/18 Time of Encounter: 09:00 - Subjective Interval History: States that she continued to have bloody bowel movement including few blood clots overnight. Hemoglobin dropped from 11-9.1 overnight without hemodynamic instability. No abdominal pain or nausea/vomiting. - Exam Vitals: Temp Pulse Resp BP Pulse Ox 98.6 F 55 19 157/70 96 12/02/18 07:03 12/02/18 07:03 12/02/18 07:03 12/02/18 07:03 12/02/18 07:03 Exam: General: Alert and oriented, not in acute distress. Morbidly obese female Cardiovascular:Normal S1 & S2, No JVD. Pulse regular. Lungs: clear to auscultation, no wheezes/rales Abdomen:Soft, non-tender, no rigidity. Extremities: Old scars in bilateral feet without evidence of infection Neurological:Normal cognition and motor skills. Non-focal - Assessment and Plan (1) Rectal bleeding Current Visit: Yes Status: Acute Assessment and Plan: Appears to be from lower GI tract Hb dropped from 11 - 9.1 overnight, remained hemodynamically stable Tagged RBC scan was unremarkable. continue to hold ASA and keep PPI BID, trend H&H appreciate surgery input, for colonoscopy tomorrow (2) Peptic ulcer disease Current Visit: No Status: Chronic Assessment and Plan: IV PPI as above (3) CKD (chronic kidney disease) Current Visit: Yes Status: Chronic Assessment and Plan: Creatinine at her baseline resume home dose of lasix avoid nephrotoxins (4) Hypertension Current Visit: No Status: Chronic Assessment and Plan: Resume home meds (5) Morbid obesity with BMI of 45.0-49.9, adult Current Visit: No Status: Chronic Assessment and Plan: Lifestyle modifications emphasized (6) DVT prophylaxis Current Visit: No Status: Acute Assessment and Plan: EPCD - Time Spent with Patient Total time spent is greater than 50% in coordination of care (as documented) at patient's floor/unit and/or counseling patient: 25 - 35 minutes Plan of Care Discussed with: patient Internal Medicine: Result - Labs CBC & Chem 7: 12/02/18 03:53 12/02/18 03:53 Labs: Short CBC 12/01/18 12/01/18 12/02/18 Range/Units 10:35 16:42 03:53 WBC 9.4 7.1 (4.3-11.1) K/mcL Hgb 10.9 L 11.0 L 9.1 L D (11.5-15.4) g/dL Hct 35.1 L 34.7 L 29.4 L (35.3-44.9) % Plt Count 210 164 (140-400) K/mcL Neutrophils # 7.7 (1.6-8.9) K/mcL BMP 12/01/18 12/02/18 10:35 03:53 Sodium 136 138 Potassium 5.4 H 5.3 H Chloride 104 107 Carbon Dioxide 24 26 BUN 47 H 48 H Creatinine 2.91 H 2.78 H Glucose 182 H 122 H Calcium 9.2 8.9 Liver Function 12/01/18 Range/Units 10:35 Total Bilirubin 0.5 (0.3-1.0) mg/dL Direct Bilirubin 0.1 (0.0-0.2) mg/dL AST 12 L (13-39) Units/L ALT 9 (7-52) Units/L Alkaline Phosphatase 82 (34-104) Units/L Albumin 3.5 (3.5-5.7) g/dL - ABG Interpretation ABG results: PT/INR, D-dimer PT 11.0 Seconds (9.4-12.1) 12/01/18 10:35 - Impressions Impressions GI Bleed Scan Nuclear Medicine 12/01/18 10:37 IMPRESSION: No evidence of active GI bleeding during acquisition. RECOMMENDATIONS: If the patient shows hemodynamic signs of an active bleed in the next 20 hours, additional images can be acquired. D/ / Yovani Tiwari MD / Yovani Tiwari MD Interpreting Provider: Yovani Tiwari MD Consult Discharge Plan - Plan Referrals: Renetta Jaime MD [Primary Care Provider] - (Appointment has been requested. ) (3) CKD (chronic kidney disease) Qualifiers: Chronic kidney disease stage: stage 4 (severe) Qualified Code(s): N18.4 - Chronic kidney disease, stage 4 (severe) (4) Hypertension Qualifiers: Hypertension type: essential hypertension Qualified Code(s): I10 - Essential (primary) hypertension
[2018-12-02 12:21] LABS: Hematocrit 31.3 % (35.3-44.9); Hemoglobin 9.9 g/dL (11.5-15.4)
[2018-12-02 20:34] LABS: Hemoglobin 10.1 g/dL (11.5-15.4)
[2018-12-03 03:57] LABS: Hematocrit 32.1 % (35.3-44.9); Mean Corpuscular HGB Conc 31.2 g/dL (31.6-35.5); Mean Corpuscular Hemoglobin 29.2 pg (28.0-33.3); Mean Corpuscular Volume 93.6 fL (83.0-100.0); Platelet Count 161 K/mcL (140-400); Red Blood Count 3.43 M/mcL (3.82-4.97); Red Cell Distribution Width 16.4 % (11.5-14.5); White Blood Count 8.1 K/mcL (4.3-11.1)
[2018-12-03 04:24] LABS: Calcium 8.3 mg/dL (8.6-10.3); Potassium 5.5 mEq/L (3.5-5.1)
[2018-12-03] MEDS: Pantoprazole 40 MG VIAL IVP SCH (06:01)
--- NOTE | 2018-12-03 07:32 | Internal Med Progress Note ---
Hospitalist Progress Note - Encounter Date of Encounter: 12/03/18 Time of Encounter: 07:31 - Subjective Interval History: Patient seen and examined this morning before after colonoscopy. Denies any new complaints. Had colonoscopy which was unremarkable except diverticulosis without any active bleeding. However blood pressure is on the higher. Patient denies any chest pain difficulty breathing palpitation. - Exam Vitals: Temp Pulse Resp BP Pulse Ox 98.4 F 62 14 149/76 98 12/03/18 05:29 12/03/18 05:29 12/03/18 05:29 12/03/18 05:12/03/18 05:29 Exam: General: Alert and oriented, not in acute distress. Morbidly obese female Cardiovascular:Normal S1 & S2, No JVD. Pulse regular. Lungs: clear to auscultation, no wheezes/rales Abdomen:Soft, non-tender, no rigidity. Extremities: Old scars in bilateral feet without evidence of infection Neurological:Normal cognition and motor skills. Non-focal - Assessment and Plan (1) Hypertension Current Visit: No Status: Chronic (2) DVT prophylaxis Current Visit: No Status: Acute (3) Peptic ulcer disease Current Visit: No Status: Chronic (4) Morbid obesity with BMI of 45.0-49.9, adult Current Visit: No Status: Chronic (5) Rectal bleeding Current Visit: Yes Status: Acute (6) CKD (chronic kidney disease) Current Visit: Yes Status: Chronic - Summary of Assessment and Plan Summary of Assessment and Plan: Assessment Acute BRBPR Uncontrolled HTN hyperkalemia Chronic h/o PUD CKD 4 Morbid obesity Plan - Patients colonoscopy without active bleed. Does have diverticulosis which might be underlying cause. Monitor Hb. will discharge patient on Iron suppl ement. Okay from surgery to be be discharged. No plan for EGD. Appreciated surgery input - Was planned for discharge however BP uncontrolled. Needed to hold losartan and spironolactone given her Hyperkalemia. Will keep patient in hospital for better BP control. Will need to stop spironolactone. If Potassium normalized will likely resume losartan. Keep on prn hydralazine. Currenlty on metoprolol 100 BID and procardia 90 daily. - Stop IV PPI and resume home oral PPI. - renal function at baseline. c/w home lasix. will need close follow up with nephrology as outpatient given CKD stage 4 - Will get PT/OT evaluation. - EPCD for DVT ppx. - Time Spent with Patient Total time spent is greater than 50% in coordination of care (as documented) at patient's floor/unit and/or counseling patient: Internal Medicine: Result - Labs CBC & Chem 7: 12/03/18 03:38 12/03/18 03:38 Labs: Short CBC 12/02/18 12/02/18 12/03/18 Range/Units 12:09 20:05 03:38 WBC 8.1 (4.3-11.1) K/mcL Hgb 9.9 L 10.1 L 10.0 L (11.5-15.4) g/dL Hct 31.3 L 32.0 L 32.1 L (35.3-44.9) % Plt Count 161 (140-400) K/mcL BMP 12/03/18 03:38 Sodium 135 L Potassium 5.5 H Chloride 104 Carbon Dioxide 24 BUN 40 H Creatinine 2.46 H Glucose 153 H Calcium 8.3 L - ABG Interpretation ABG results: PT/INR, D-dimer PT 11.0 Seconds (9.4-12.1) 12/01/18 10:35 Consult Discharge Plan - Plan Referrals: Renetta Jaime MD [Primary Care Provider] - (Appointment has been requested. ) (1) Hypertension Qualifiers: Hypertension type: essential hypertension Qualified Code(s): I10 - Essential (primary) hypertension (6) CKD (chronic kidney disease) Qualifiers: Chronic kidney disease stage: stage 4 (severe) Qualified Code(s): N18.4 - Chronic kidney disease, stage 4 (severe)
--- NOTE | 2018-12-03 10:48 | Anesthesia Evaluation PreOp ---
Date of Encounter: 12/03/18 Time of Encounter: 12:06 - Past History Planned Operation: colonoscopy Cardiac History: CHF, HTN, Other (Pulmonary Htn) Other Medical History: Renal (CKD stage 4), Diabetes Type II, Other (Ulcers 05/16, Morbid obesity) Anesthesia History: No Prior Anesthetic Complications, Past Anesthesia (L foot, bilat wrist, bilat TKA) : No Alcohol Use: none Drug use: none Medications and Allergies Allopurinol [Zyloprim 100 MG] 100 mg PO DAILY 11/16/18 [History] Aspirin [Lo-Dose Aspirin EC] 81 mg PO DAILY 11/16/18 [History] Atorvastatin Calcium [Lipitor] 40 mg PO HS 11/16/18 [History] Furosemide [Lasix] 80 mg PO QAM 11/16/18 [History] Gabapentin [Neurontin] 800 mg PO BID 11/16/18 [History] NIFEdipine [Nifedipine ER] 90 mg PO DAILY 11/16/18 [History] Olmesartan Medoxomil [Benicar] 40 mg PO DAILY 11/16/18 [History] Spironolactone [Aldactone] 25 mg PO DAILY 11/16/18 [History] Doxercalciferol [Hectorol] 2.5 mcg IV MOWEFR 11/17/18 [History] Omeprazole [PriLOSEC] 20 mg PO DAILY #20 capsule. 11/20/18 [Rx] Multivit-Min/Iron/Vitamin K [Adult Multivitamin-Iron Tablet] 1 tab PO DAILY 12/01/18 [History] Nebivolol HCl [Bystolic] 20 tab PO DAILY 12/01/18 [History] OxyCODONE ER (12 HR) [OxyCONTIN] 10 mg PO 0600,1200,1800,0000 12/01/18 [History] Allergy/AdvReac Type Severity Reaction Status Date / Time Iodinated Contrast Media Allergy Hives Verified 11/16/18 18:16 [Iodinated Contrast- Oral and IV Dye] morphine Allergy Swelling Verified 11/16/18 18:16 of Lip/Tongue/Throat prednisone Allergy Swelling Verified 11/16/18 18:16 of Lip/Tongue/Throat pregabalin [From Lyrica] Allergy Hallucinati Verified 11/16/18 18:16 ng - Meds/Allergy Pre-op Review Medications Reviewed: Yes Allergies Reviewed: Yes Beta Blockers on Current Med List: No Anesthesia Results - Labs 12/03/18 03:38 12/03/18 03:38 - Imaging EKG: report reviewed, image reviewed ([id number]) Anesthesia Exam Vital Signs/O2 Sat, Most Current Temp Pulse Resp BP Pulse Ox 99.1 F 66 16 158/84 98 12/03/18 07:43 12/03/18 07:43 12/03/18 07:43 12/03/18 10:07 12/03/18 07:43 - HEENT Pupil (Motor): Pupils equal, EOMI Mallampati: III Teeth: Normal Oral Opening: Greater than 3 - LANDSCAPE SUPERVISOR LOC: Oriented LANDSCAPE SUPERVISOR Motor: Normal RUE, Normal LUE, Normal RLE, Normal LLE, Normal Face LANDSCAPE SUPERVISOR Sensory: Normal: RUE, LUE, RLE, LLE, Face - Cardiac Rhythm: Regular Murmur: None JVD: No - Pulmonary Breath Sounds: bilateral Clear Respiratory Effort: Symmetrical Anesthesia Assess/Plan ASA Score: 3 Level of consciousness: Cooperative Anesthetic Plan: MAC Monitoring Plan: Standard Monitors Recovery Plan: Other (floor)
[2018-12-03] MEDS ORDERED: *HR* Propofol 200 MG/20 ML VIAL IVP ONE (12:18)
[2018-12-03] MEDS ORDERED: Lidocaine -MPF 2% 2 ML VIAL ONE (12:18)
[2018-12-03] MEDS ORDERED: Propofol 500 MG/50 ML INFUS..BTL ONE (12:18)
[2018-12-03] MEDS ORDERED: hydrALAZINE 10 MG TABLET PO PRN (13:28)
[2018-12-03] MEDS: Furosemide 40 MG TABLET PO SCH (13:28)
[2018-12-03] MEDS: NIFEdipine XL (24 HR) 30 MG TAB.ER.24 PO SCH (13:31)
[2018-12-03] MEDS: Metoprolol 100 MG TABLET PO SCH ×2 (13:32→20:35)
[2018-12-03] MEDS: *HR* OxyCODONE Immed Rel 5 MG TABLET PO PRN ×2 (13:32→21:42)
[2018-12-03] MEDS: Gabapentin 400 MG CAPSULE PO SCH ×2 (13:39→20:41)
[2018-12-04 05:26] LABS: Hematocrit 29.3 % (35.3-44.9)
[2018-12-04 05:37] LABS: Calcium 8.2 mg/dL (8.6-10.3)
[2018-12-04 06:45] VITALS: BP 144/77
[2018-12-04] MEDS: Metoprolol 100 MG TABLET PO SCH (08:16)
[2018-12-04] MEDS: NIFEdipine XL (24 HR) 30 MG TAB.ER.24 PO SCH (08:16)
[2018-12-04] MEDS: Gabapentin 400 MG CAPSULE PO SCH (08:16)
[2018-12-04] MEDS: Furosemide 40 MG TABLET PO SCH (08:16)
[2018-12-04] MEDS: *HR* OxyCODONE Immed Rel 5 MG TABLET PO PRN (08:21)
--- NOTE | 2018-12-04 09:04 | Discharge Summary ---
- NOTES TO OUTPATIENT PROVIDER Notes to Outpatient Provider: Home spironolactone held given hyperkalemia. We will need follow-up hemoglobin and BMP check in one week. Date of Encounter: 12/04/18 Time of Encounter: 08:59 - Discharge Diagnosis (1) Hypertension Priority: Secondary Status: Chronic Qualifiers: Hypertension type: essential hypertension Qualified Code(s): I10 - Essential (primary) hypertension (2) DVT prophylaxis Priority: Secondary Status: Acute (3) Peptic ulcer disease Priority: Secondary Status: Chronic (4) Morbid obesity with BMI of 45.0-49.9, adult Priority: Secondary Status: Chronic (5) Rectal bleeding Priority: Primary Status: Acute (6) CKD (chronic kidney disease) Priority: Secondary Status: Chronic Qualifiers: Chronic kidney disease stage: stage 4 (severe) Qualified Code(s): N18.4 - Chronic kidney disease, stage 4 (severe) (7) Hyperkalemia Priority: Secondary Status: Acute Hospital course: Ms. John is a 68 year old female PMHx of HTN, morbid obesity, pulmonary HTN, CKD stage 4, HFpEF, PUD, came with BRBPR. she had EGD/colonoscopy done in 04/2018 that was significant for bleeding ulcer. Bleeding scan was negative. Surgery was consulted and patient underwent colonoscopy which showed diverticulosis without any active bleeding. Her hemoglobin remained stable and did not have any further episodes of regular blood per rectum. No EGD was indicated. Patient did have mild hyperkalemia likely related to TIEN-i and spironolactone use. Both were held and her hyperkalemia improved. She needed Given her blood pressure she will be resumed on tien inhibitors. She stable to be discharged home to have follow-up hemoglobin checked in a week. She also has CKD stage IV and needs close follow-up with nephrology as outpatient. Will hold spironolactone for now given CKD and hyerkalemia. Discharge discussed with: patient, nurse, revenue cycle consultant - Time Spent with Patient Total time spent providing and/or coordinating discharge services: Time spent: Greater than 30 minutes (40) - Discharge Medications Prescriptions: Continued NIFEdipine [Nifedipine ER] 90 mg PO DAILY Gabapentin [Neurontin] 800 mg PO BID Furosemide [Lasix] 80 mg PO QAM Atorvastatin Calcium [Lipitor] 40 mg PO HS Olmesartan Medoxomil [Benicar] 40 mg PO DAILY Aspirin [Lo-Dose Aspirin EC] 81 mg PO DAILY Allopurinol [Zyloprim 100 MG] 100 mg PO DAILY Doxercalciferol [Hectorol] 2.5 mcg IV MOWEFR Omeprazole [PriLOSEC] 20 mg PO DAILY #20 capsule. Multivit-Min/Iron/Vitamin K [Adult Multivitamin-Iron Tablet] 1 tab PO DAILY Nebivolol HCl [Bystolic] 20 tab PO DAILY OxyCODONE ER (12 HR) [OxyCONTIN] 10 mg PO 0600,1200,1800,0000 Discontinued Spironolactone [Aldactone] 25 mg PO DAILY Home Medications: Allopurinol [Zyloprim 100 MG] 100 mg PO DAILY 11/16/18 [History] Aspirin [Lo-Dose Aspirin EC] 81 mg PO DAILY 11/16/18 [History] Atorvastatin Calcium [Lipitor] 40 mg PO HS 11/16/18 [History] Furosemide [Lasix] 80 mg PO QAM 11/16/18 [History] Gabapentin [Neurontin] 800 mg PO BID 11/16/18 [History] NIFEdipine [Nifedipine ER] 90 mg PO DAILY 11/16/18 [History] Olmesartan Medoxomil [Benicar] 40 mg PO DAILY 11/16/18 [History] Doxercalciferol [Hectorol] 2.5 mcg IV MOWEFR 11/17/18 [History] Omeprazole [PriLOSEC] 20 mg PO DAILY #20 capsule. 11/20/18 [Rx] Multivit-Min/Iron/Vitamin K [Adult Multivitamin-Iron Tablet] 1 tab PO DAILY 12/01/18 [History] Nebivolol HCl [Bystolic] 20 tab PO DAILY 12/01/18 [History] OxyCODONE ER (12 HR) [OxyCONTIN] 10 mg PO 0600,1200,1800,0000 12/01/18 [History] Allergies/Adverse Reactions: Allergy/AdvReac Type Severity Reaction Status Date / Time Iodinated Contrast Media Allergy Hives Verified 11/16/18 18:16 [Iodinated Contrast- Oral and IV Dye] morphine Allergy Swelling Verified 11/16/18 18:16 of Lip/Tongue/Throat prednisone Allergy Swelling Verified 11/16/18 18:16 of Lip/Tongue/Throat pregabalin [From Lyrica] Allergy Hallucinati Verified 11/16/18 18:16 ng Date of admission: 12/03/18 14:02 Primary care physician: Renetta Jaime MD Consults: 12/01/18 11:00 Consult to Surgery [CONS] Stat Consulting Provider: Acute Care Surgery Reason for Consult: GI Bleed Call Completed: Yes 12/01/18 15:38 Consult to Assistant Purchasing Manager [CONS] Routine Reason for SW Consult: PATIENT FROM [facility] 12/03/18 14:01 Consult to Occupational Therapy [CONS] Routine Comment: Evaluate, develop and implement POC Reason for Consult: improve mobility, discharge planning Does patient have active BEDREST order?: No Is patient medically & hemodynamically stable?: Yes Consult to Physical Therapy [CONS] Routine Comment: Evaluate, develop and implement POC Reason for Consult: improve mobility, discharge planning Does patient have active BEDREST order?: No Is patient medically & hemodynamically stable?: Yes Discharging clinician: Marimar Wynn - Constitutional Vitals: Temp Pulse Resp BP Pulse Ox 98.3 F 61 14 144/77 93 12/04/18 06:37 12/04/18 06:37 12/04/18 06:37 12/04/18 06:37 12/04/18 06:37 Exam: General: Alert and oriented, not in acute distress. Morbidly obese female Cardiovascular:Normal S1 & S2, No JVD. Pulse regular. Lungs: clear to auscultation, no wheezes/rales Abdomen:Soft, non-tender, no rigidity. Extremities: Old scars in bilateral feet without evidence of infection Neurological:Normal cognition and motor skills. Non-focal - Patient Status Disposition: Home, Self-Care Condition: Good - Ambulatory Orders Ambulatory Orders: Basic Metabolic Panel [CHEM] Time Frame: 1 Week, Facility: [facility], Location: Lab Hemoglobin and Hematocrit [HEME] Time Frame: 1 Week, Facility: [facility], Location: Lab - Discharge Instructions Follow Up With: Renetta Jaime MD [Primary Care Provider] - 12/11/18 1:30 pm () Payam Singh DO [Partnered Physician] - 01/25/19 10:00 am Vipul Hillman DO [Partnered Physician] - 12/26/18 1:00 pm
--- NOTE | 2018-12-04 10:47 | Physician Discharge Referral ---
ExtendedCare Referral Info Institutional Level of Care: Skilled - Diagnosis (1) Hypertension Status: Chronic (2) DVT prophylaxis Status: Acute (3) Peptic ulcer disease Status: Chronic (4) Morbid obesity with BMI of 45.0-49.9, adult Status: Chronic (5) Rectal bleeding Status: Acute (6) CKD (chronic kidney disease) Status: Chronic (7) Hyperkalemia Status: Acute - Transfer Medications Home Medications: Allopurinol [Zyloprim 100 MG] 100 mg PO DAILY 11/16/18 [History] Aspirin [Lo-Dose Aspirin EC] 81 mg PO DAILY 11/16/18 [History] Atorvastatin Calcium [Lipitor] 40 mg PO HS 11/16/18 [History] Furosemide [Lasix] 80 mg PO QAM 11/16/18 [History] Gabapentin [Neurontin] 800 mg PO BID 11/16/18 [History] NIFEdipine [Nifedipine ER] 90 mg PO DAILY 11/16/18 [History] Olmesartan Medoxomil [Benicar] 40 mg PO DAILY 11/16/18 [History] Doxercalciferol [Hectorol] 2.5 mcg IV MOWEFR 11/17/18 [History] Omeprazole [PriLOSEC] 20 mg PO DAILY #20 capsule. 11/20/18 [Rx] Multivit-Min/Iron/Vitamin K [Adult Multivitamin-Iron Tablet] 1 tab PO DAILY 12/01/18 [History] Nebivolol HCl [Bystolic] 20 tab PO DAILY 12/01/18 [History] OxyCODONE ER (12 HR) [OxyCONTIN] 10 mg PO 0600,1200,1800,0000 12/01/18 [History] Allergies/Adverse Reactions: Allergy/AdvReac Type Severity Reaction Status Date / Time Iodinated Contrast Media Allergy Hives Verified 11/16/18 18:16 [Iodinated Contrast- Oral and IV Dye] morphine Allergy Swelling Verified 11/16/18 18:16 of Lip/Tongue/Throat prednisone Allergy Swelling Verified 11/16/18 18:16 of Lip/Tongue/Throat pregabalin [From Lyrica] Allergy Hallucinati Verified 11/16/18 18:16 ng - Respiratory Orders Smoking Cessation: Smoking cessation has been advised. For more information, call the [place] Tobacco Quit Line at 3-989-UAVV-NOW. CERTIFICATION: I certify that the transfer of the above named patient to an Extended Care Facility is necessary for the continuing treatment of the diagnosis listed. The above information is true and accurate reflection of patient's current condition. Confidential - Redisclosure prohibited without a patient's written consent.
== END 2018-12-04 11:24 | disposition home or self-care (01) | DRG 378 ==
LOC: EMEROOARM 10:13 → 3BNU 10:13 → SUATTDRO 12:46 → 3BNU 13:38
PROVIDERS: ADMIT Internal Medicine; ATTEND Internal Medicine

== ENCOUNTER 2018-12-25 13:39 | Observation (INO) ==
[2018-12-25] MEDS ORDERED: Naloxone 0.4 MG/ML INJ IVP PRN (17:41)
[2018-12-25 20:22] LABS: Calcium 8.8 mg/dL (8.6-10.3); Potassium 5.2 mEq/L (3.5-5.1)
[2018-12-25] MEDS ORDERED: Gabapentin 400 MG CAPSULE PO SCH (21:00)
[2018-12-25] MEDS: *HR* OxyCODONE Immed Rel 5 MG TABLET PO PRN (22:21)
[2018-12-26] MEDS ORDERED: *HR* OxyCODONE ER (12 HR) 10 MG TABLET PO SCH
[2018-12-26 05:41] LABS: Basophils % 0.5 %; Eosinophils # 0.2 K/mcL (0.0-0.6); Eosinophils % 3.7 %; Hematocrit 28.7 % (35.3-44.9); Hemoglobin 8.8 g/dL (11.5-15.4); Immature Granulocytes % 0.2 % (0-4); Lymphocytes # 0.7 K/mcL (0.6-4.6); Lymphocytes % 11.4 %; Mean Corpuscular HGB Conc 30.7 g/dL (31.6-35.5); Mean Platelet Volume 11.2 fL (9.4-12.4); Monocytes # 0.6 K/mcL (0.0-1.3); Monocytes % 10.2 %; Neutrophils # 4.2 K/mcL (1.6-8.9); Platelet Count 158 K/mcL (140-400); Red Blood Count 2.93 M/mcL (3.82-4.97); White Blood Count 5.7 K/mcL (4.3-11.1)
[2018-12-26 06:00] LABS: Calcium 8.9 mg/dL (8.6-10.3); Potassium 4.9 mEq/L (3.5-5.1)
[2018-12-26] MEDS ORDERED: *HR* Heparin 5,000 UNIT/ML VIAL SQ SCH (06:00)
[2018-12-26] MEDS ORDERED: Ferumoxytol 510 MG in 0.9 % Sodium Chloride 100 ML IVPB ONE ×2 (08:47→09:15)
[2018-12-26] MEDS ORDERED: Furosemide 40 MG TABLET PO SCH (09:00)
[2018-12-26] MEDS ORDERED: Aspirin Enteric Coated 81 MG Tablet PO SCH (09:00)
[2018-12-26] MEDS ORDERED: Metoprolol 100 MG TABLET PO SCH (09:00)
[2018-12-26] MEDS ORDERED: NIFEdipine XL (24 HR) 30 MG TAB.ER.24 PO SCH (09:00)
[2018-12-26] MEDS: *HR* OxyCODONE Immed Rel 5 MG TABLET PO PRN (09:46)
[2018-12-26 11:25] VITALS: BP 133/61
[2018-12-26] MEDS ORDERED: Gabapentin 300 MG CAPSULE PO SCH (21:00)
== END 2018-12-26 16:29 ==
LOC: 2ANU → SUATTDRO 15:46
PROVIDERS: ADMIT Pharmacist; ATTEND Internal Medicine

== ENCOUNTER 2019-01-02 16:30 | Inpatient (IN) ==
[2019-01-02 17:47] LABS: Basophils # 0.1 K/mcL (0.0-0.2); Basophils % 0.7 %; Eosinophils # 0.2 K/mcL (0.0-0.6); Eosinophils % 3.1 %; Hematocrit 32.6 % (35.3-44.9); Immature Granulocytes % 0.4 % (0-4); Lymphocytes # 0.6 K/mcL (0.6-4.6); Lymphocytes % 8.9 %; Mean Corpuscular HGB Conc 30.7 g/dL (31.6-35.5); Mean Corpuscular Volume 97.9 fL (83.0-100.0); Mean Platelet Volume 9.8 fL (9.4-12.4); Monocytes # 0.7 K/mcL (0.0-1.3); Neutrophils # 5.4 K/mcL (1.6-8.9); Platelet Count 169 K/mcL (140-400); Red Blood Count 3.33 M/mcL (3.82-4.97); Red Cell Distribution Width 17.2 % (11.5-14.5); Segmented Neutrophils % 76.9 %
[2019-01-02 18:08] LABS: Magnesium 2.3 mg/dL (1.6-2.6); Phosphorous 4.4 mg/dL (2.7-4.5)
[2019-01-02 18:13] LABS: Albumin 3.8 g/dL (3.5-5.7); Albumin/Globulin Ratio 1.4 (1.1-2.2); Bilirubin,Total 0.5 mg/dL (0.3-1.0); Calcium 9.4 mg/dL (8.6-10.3); Globulin 2.7 g/dL (2.4-3.5); Potassium 4.7 mEq/L (3.5-5.1); Total Protein 6.5 g/dL (6.4-8.9); Troponin I 0.03 ng/mL (< 0.04)
[2019-01-02] MEDS ORDERED: Furosemide 40 MG/4 ML VIAL IVP ONE ×2 (21:00)
[2019-01-02] MEDS ORDERED: D5% in Water 1,000 ML IVC PRN (21:43)
[2019-01-02] MEDS ORDERED: *HR* Dextrose 50 % in Water (Syg) 50 ML SYRINGE IVP PRN (21:43)
[2019-01-02] MEDS ORDERED: Dextrose Gel 15 GM/37.5 ML TUBE PO PRN ×2 (21:43)
[2019-01-02] MEDS: *HR* Heparin 5,000 UNIT/ML VIAL SQ SCH (21:52)
[2019-01-02] MEDS: Gabapentin 300 MG CAPSULE PO SCH (21:52)
[2019-01-02] MEDS: *HR* OxyCODONE Immed Rel 5 MG TABLET PO PRN (21:53)
[2019-01-02] MEDS: hydrALAZINE 25 MG TABLET PO SCH (21:53)
[2019-01-02 21:57] LABS: Bilirubin,Urine Negative (Negative); Blood,Urine Negative (Negative); Clarity,Urine Clear (Clear); Color,Urine Yellow (Yellow); Glucose,Urine (UA) 100 mg/dL (Normal); Ketones,Urine Negative (Negative); Leukocyte Esterase,Urine Negative (Negative); Nitrite,Urine Negative (Negative); PH,Urine 5.5 pH Units (5.0-8.0); Protein,Urine >=300 mg/dL (Neg-Trace); Specific Gravity,Urine 1.015 (1.010-1.025); Urobilinogen,Urine Normal (Normal)
[2019-01-02 21:59] LABS: Bacteria,Urine Few per hpf (None-Few); Hyaline Casts,Urine None Seen per lpf (None-Few); Squamous Epithelial Cell,Urine Many per lpf (None-Few)
[2019-01-03] MEDS ORDERED: Insulin LISPRO 300 UNITS/3 ML VIAL SQ SCH
[2019-01-03] MEDS: *HR* Heparin 5,000 UNIT/ML VIAL SQ SCH ×3 (05:37→21:26)
[2019-01-03 06:08] LABS: Basophils % 0.5 %; Eosinophils # 0.2 K/mcL (0.0-0.6); Eosinophils % 3.6 %; Hematocrit 29.3 % (35.3-44.9); Hemoglobin 8.9 g/dL (11.5-15.4); Immature Granulocytes % 0.7 % (0-4); Lymphocytes # 0.5 K/mcL (0.6-4.6); Lymphocytes % 9.2 %; Mean Corpuscular HGB Conc 30.4 g/dL (31.6-35.5); Mean Corpuscular Hemoglobin 30.5 pg (28.0-33.3); Mean Corpuscular Volume 100.3 fL (83.0-100.0); Mean Platelet Volume 10.3 fL (9.4-12.4); Monocytes # 0.7 K/mcL (0.0-1.3); Monocytes % 11.1 %; Neutrophils # 4.4 K/mcL (1.6-8.9); Platelet Count 141 K/mcL (140-400); Red Blood Count 2.92 M/mcL (3.82-4.97); Red Cell Distribution Width 17.2 % (11.5-14.5); Segmented Neutrophils % 74.9 %; White Blood Count 5.8 K/mcL (4.3-11.1)
[2019-01-03 06:16] LABS: Prothrombin Time 11.1 Seconds (9.4-12.1)
[2019-01-03 06:18] LABS: Activated Partial Thrombo Time 31.4 Seconds (26.0-36.0)
[2019-01-03 06:57] LABS: Albumin 3.3 g/dL (3.5-5.7); Albumin/Globulin Ratio 1.5 (1.1-2.2); Bilirubin,Total 0.4 mg/dL (0.3-1.0); Calcium 8.9 mg/dL (8.6-10.3); Globulin 2.2 g/dL (2.4-3.5); Potassium 4.6 mEq/L (3.5-5.1); Thyroid Stimulating Hormone 9.979 mcIU/mL (0.340-5.600); Total Protein 5.5 g/dL (6.4-8.9)
[2019-01-03] MEDS: Insulin LISPRO 300 UNITS/3 ML VIAL SQ SCH ×4 (08:24→20:36)
[2019-01-03] MEDS ORDERED: DOXERCALCIFEROL 2.5 MCG PO SCH (09:00)
[2019-01-03] MEDS ORDERED: Furosemide 40 MG TABLET PO SCH (09:00)
[2019-01-03 09:26] LABS: Estimated Average Glucose 131 mg/dl
[2019-01-03] MEDS: Aspirin Enteric Coated 81 MG Tablet PO SCH (09:50)
[2019-01-03] MEDS: Multivit/Ca/Min/Fe/FA 1 TAB TABLET PO SCH (09:50)
[2019-01-03] MEDS: hydrALAZINE 25 MG TABLET PO SCH ×3 (09:50→21:26)
[2019-01-03] MEDS: Cholecalciferol (D-3) 1,000 UNIT (25MCG) TABLET PO SCH (09:50)
[2019-01-03] MEDS: NIFEdipine XL (24 HR) 30 MG TAB.ER.24 PO SCH (09:50)
[2019-01-03] MEDS: Furosemide 40 MG/4 ML VIAL IVP SCH ×2 (09:50→16:43)
[2019-01-03] MEDS: *HR* OxyCODONE Immed Rel 5 MG TABLET PO PRN ×2 (09:51→16:43)
[2019-01-03] MEDS: Gabapentin 300 MG CAPSULE PO SCH (21:26)
[2019-01-04] MEDS: *HR* OxyCODONE Immed Rel 5 MG TABLET PO PRN ×3 (04:14→21:37)
[2019-01-04] MEDS: Levothyroxine 25 MCG TABLET PO SCH (05:33)
[2019-01-04] MEDS: *HR* Heparin 5,000 UNIT/ML VIAL SQ SCH ×2 (05:33→14:44)
[2019-01-04 06:04] LABS: Basophils # 0.1 K/mcL (0.0-0.2); Basophils % 0.8 %; Eosinophils # 0.2 K/mcL (0.0-0.6); Eosinophils % 3.5 %; Hematocrit 30.9 % (35.3-44.9); Hemoglobin 9.2 g/dL (11.5-15.4); Immature Granulocytes % 0.5 % (0-4); Lymphocytes # 0.6 K/mcL (0.6-4.6); Lymphocytes % 8.5 %; Mean Corpuscular HGB Conc 29.8 g/dL (31.6-35.5); Mean Corpuscular Hemoglobin 30.1 pg (28.0-33.3); Mean Platelet Volume 10.5 fL (9.4-12.4); Monocytes # 0.6 K/mcL (0.0-1.3); Monocytes % 9.6 %; Nucleated Red Blood Cells 0.3 /100 WBC (0); Platelet Count 154 K/mcL (140-400); Red Blood Count 3.06 M/mcL (3.82-4.97); Red Cell Distribution Width 17.4 % (11.5-14.5); Segmented Neutrophils % 77.1 %; White Blood Count 6.5 K/mcL (4.3-11.1)
[2019-01-04 06:16] LABS: Calcium 8.8 mg/dL (8.6-10.3); Magnesium 2.3 mg/dL (1.6-2.6); Phosphorous 4.9 mg/dL (2.7-4.5); Potassium 4.9 mEq/L (3.5-5.1)
[2019-01-04] MEDS ORDERED: NON-FORMULARY MEDICATION 1 EACH EACH (Multivitamin [One Daily Multivitamin] 1 TAB) PO SCH (09:00)
[2019-01-04] MEDS: Insulin LISPRO 300 UNITS/3 ML VIAL SQ SCH ×4 (09:01→21:14)
[2019-01-04] MEDS: Cholecalciferol (D-3) 1,000 UNIT (25MCG) TABLET PO SCH (09:09)
[2019-01-04] MEDS: NIFEdipine XL (24 HR) 30 MG TAB.ER.24 PO SCH (09:09)
[2019-01-04] MEDS: Aspirin Enteric Coated 81 MG Tablet PO SCH (09:09)
[2019-01-04] MEDS: Spironolactone 25 MG TABLET PO SCH (09:09)
[2019-01-04] MEDS: hydrALAZINE 25 MG TABLET PO SCH ×3 (09:09→21:21)
[2019-01-04] MEDS: Furosemide 40 MG/4 ML VIAL IVP SCH ×2 (09:09→18:35)
[2019-01-04] MEDS: Multivit/Ca/Min/Fe/FA 1 TAB TABLET PO SCH (09:09)
[2019-01-04] MEDS ORDERED: Ferumoxytol 510 MG in 0.9 % Sodium Chloride 100 ML IVPB ONE (11:59)
[2019-01-04 14:37] LABS: Hematocrit 31.2 % (35.3-44.9); Hemoglobin 9.7 g/dL (11.5-15.4)
[2019-01-04] MEDS: Albumin 25% 25gram/100mL 25 GM/100 ML IV.SOLN IVPB SCH ×2 (16:15→21:22)
[2019-01-04] MEDS: Pantoprazole 40 MG VIAL IVP SCH (18:35)
[2019-01-04 20:31] LABS: Hematocrit 29.9 % (35.3-44.9); Hemoglobin 9.1 g/dL (11.5-15.4)
[2019-01-04] MEDS: Gabapentin 300 MG CAPSULE PO SCH (21:22)
[2019-01-05 05:41] LABS: Basophils % 0.4 %; Eosinophils # 0.2 K/mcL (0.0-0.6); Eosinophils % 3.3 %; Hematocrit 29.2 % (35.3-44.9); Immature Granulocytes % 0.6 % (0-4); Lymphocytes # 0.5 K/mcL (0.6-4.6); Lymphocytes % 8.8 %; Mean Corpuscular HGB Conc 30.8 g/dL (31.6-35.5); Mean Corpuscular Hemoglobin 30.3 pg (28.0-33.3); Mean Corpuscular Volume 98.3 fL (83.0-100.0); Mean Platelet Volume 10.8 fL (9.4-12.4); Monocytes # 0.6 K/mcL (0.0-1.3); Monocytes % 11.4 %; Neutrophils # 4.1 K/mcL (1.6-8.9); Nucleated Red Blood Cells 0.4 /100 WBC (0); Platelet Count 139 K/mcL (140-400); Red Blood Count 2.97 M/mcL (3.82-4.97); Red Cell Distribution Width 17.4 % (11.5-14.5); Segmented Neutrophils % 75.5 %; White Blood Count 5.4 K/mcL (4.3-11.1)
[2019-01-05] MEDS: Levothyroxine 25 MCG TABLET PO SCH (05:41)
[2019-01-05] MEDS: Pantoprazole 40 MG VIAL IVP SCH (05:41)
[2019-01-05] MEDS: *HR* OxyCODONE Immed Rel 5 MG TABLET PO PRN ×3 (05:55→21:30)
[2019-01-05 06:41] LABS: Calcium 9.1 mg/dL (8.6-10.3); Magnesium 2.3 mg/dL (1.6-2.6); Phosphorous 4.9 mg/dL (2.7-4.5); Potassium 5.1 mEq/L (3.5-5.1)
[2019-01-05] MEDS: Albumin 25% 25gram/100mL 25 GM/100 ML IV.SOLN IVPB SCH (08:54)
[2019-01-05] MEDS: Furosemide 40 MG/4 ML VIAL IVP SCH ×2 (08:55→18:33)
[2019-01-05] MEDS: Cholecalciferol (D-3) 1,000 UNIT (25MCG) TABLET PO SCH (08:55)
[2019-01-05] MEDS: hydrALAZINE 25 MG TABLET PO SCH ×3 (08:55→21:30)
[2019-01-05] MEDS: Multivit/Ca/Min/Fe/FA 1 TAB TABLET PO SCH (08:55)
[2019-01-05] MEDS: Spironolactone 25 MG TABLET PO SCH (08:55)
[2019-01-05] MEDS: NIFEdipine XL (24 HR) 30 MG TAB.ER.24 PO SCH (08:56)
[2019-01-05] MEDS: Insulin LISPRO 300 UNITS/3 ML VIAL SQ SCH ×4 (08:56→22:26)
[2019-01-05] MEDS: cloNIDine HCl 0.1 MG TABLET PO SCH ×3 (09:03→21:30)
[2019-01-05 09:14] LABS: Hepatitis B Surface Antibody < 3.10 mIU/mL
[2019-01-05 09:26] LABS: Hepatitis B Surface Antigen Nonreactive (Nonreactive)
[2019-01-05 09:54] LABS: Hepatitis B Core IgM Nonreactive (Nonreactive)
[2019-01-05] MEDS ORDERED: *HR* Heparin 10,000 UNIT/10 ML VIAL IV PRN (12:24)
[2019-01-05] MEDS ORDERED: 0.9 % Sodium Chloride 250 ML IVC PRN (12:24)
[2019-01-05] MEDS ORDERED: 0.9 % Sodium Chloride 1,000 ML ONE (12:43)
[2019-01-05] MEDS ORDERED: Heparin 1,000 UNITS/500 mL 500 ML ONE (14:13)
[2019-01-05] MEDS ORDERED: *HR* FentaNYL (PF) 100 MCG/2 ML VIAL IVP ONE (14:27)
[2019-01-05] MEDS ORDERED: CeFAZolin Premix DUPLEX 2,000 MG/50 ML BAG IVPB ONE (14:27)
[2019-01-05] MEDS ORDERED: *HR* Midazolam HCl 2 MG/2 ML VIAL IVP ONE (14:27)
[2019-01-05] MEDS ORDERED: 0.9 % Sodium Chloride 500 ML ONE (14:27)
[2019-01-05] MEDS ORDERED: *HR* Heparin 5,000 UNIT/ML VIAL ONE (14:39)
[2019-01-05] MEDS: 0.9 % Sodium Chloride 1,000 ML PRIME SCH (15:45)
[2019-01-05] MEDS: Gabapentin 300 MG CAPSULE PO SCH (21:30)
[2019-01-06 03:11] LABS: Basophils % 0.8 %; Eosinophils # 0.1 K/mcL (0.0-0.6); Eosinophils % 2.6 %; Hematocrit 28.6 % (35.3-44.9); Hemoglobin 8.9 g/dL (11.5-15.4); Immature Granulocytes % 1.4 % (0-4); Lymphocytes # 0.5 K/mcL (0.6-4.6); Lymphocytes % 9.9 %; Mean Corpuscular HGB Conc 31.1 g/dL (31.6-35.5); Mean Corpuscular Hemoglobin 30.6 pg (28.0-33.3); Mean Corpuscular Volume 98.3 fL (83.0-100.0); Mean Platelet Volume 11.2 fL (9.4-12.4); Monocytes # 0.5 K/mcL (0.0-1.3); Monocytes % 10.5 %; Neutrophils # 3.7 K/mcL (1.6-8.9); Platelet Count 117 K/mcL (140-400); Red Blood Count 2.91 M/mcL (3.82-4.97); Red Cell Distribution Width 17.4 % (11.5-14.5); Segmented Neutrophils % 74.8 %
[2019-01-06 03:23] LABS: Calcium 8.8 mg/dL (8.6-10.3); Potassium 4.6 mEq/L (3.5-5.1)
[2019-01-06] MEDS: Levothyroxine 25 MCG TABLET PO SCH (06:07)
[2019-01-06] MEDS ORDERED: 0.9 % Sodium Chloride 250 ML IVC PRN (08:35)
[2019-01-06] MEDS ORDERED: *HR* Heparin 10,000 UNIT/10 ML VIAL IV PRN (08:35)
[2019-01-06] MEDS: Insulin LISPRO 300 UNITS/3 ML VIAL SQ SCH ×4 (08:48→21:05)
[2019-01-06] MEDS: cloNIDine HCl 0.1 MG TABLET PO SCH ×3 (08:50→20:55)
[2019-01-06] MEDS: NIFEdipine XL (24 HR) 30 MG TAB.ER.24 PO SCH ×2 (08:50→13:14)
[2019-01-06] MEDS: Furosemide 40 MG/4 ML VIAL IVP SCH (08:50)
[2019-01-06] MEDS: hydrALAZINE 25 MG TABLET PO SCH ×4 (08:50→20:55)
[2019-01-06] MEDS: Spironolactone 25 MG TABLET PO SCH (08:57)
[2019-01-06] MEDS: Multivit/Ca/Min/Fe/FA 1 TAB TABLET PO SCH (08:57)
[2019-01-06] MEDS: Cholecalciferol (D-3) 1,000 UNIT (25MCG) TABLET PO SCH (08:57)
[2019-01-06] MEDS: *HR* OxyCODONE Immed Rel 5 MG TABLET PO PRN ×3 (09:00→20:56)
[2019-01-06] MEDS: Gabapentin 300 MG CAPSULE PO SCH (20:55)
[2019-01-07] MEDS: *HR* OxyCODONE Immed Rel 5 MG TABLET PO PRN ×3 (04:20→18:22)
[2019-01-07] MEDS: Levothyroxine 25 MCG TABLET PO SCH (06:06)
[2019-01-07 06:12] LABS: Basophils % 0.5 %; Eosinophils # 0.2 K/mcL (0.0-0.6); Eosinophils % 3.2 %; Hematocrit 30.1 % (35.3-44.9); Hemoglobin 9.4 g/dL (11.5-15.4); Immature Granulocytes % 0.5 % (0-4); Lymphocytes # 0.5 K/mcL (0.6-4.6); Mean Corpuscular HGB Conc 31.2 g/dL (31.6-35.5); Mean Corpuscular Hemoglobin 30.2 pg (28.0-33.3); Mean Corpuscular Volume 96.8 fL (83.0-100.0); Mean Platelet Volume 10.6 fL (9.4-12.4); Monocytes # 0.7 K/mcL (0.0-1.3); Monocytes % 12.1 %; Neutrophils # 4.4 K/mcL (1.6-8.9); Platelet Count 110 K/mcL (140-400); Red Blood Count 3.11 M/mcL (3.82-4.97); Red Cell Distribution Width 17.2 % (11.5-14.5); Segmented Neutrophils % 75.7 %; White Blood Count 5.9 K/mcL (4.3-11.1)
[2019-01-07 06:32] LABS: Calcium 8.9 mg/dL (8.6-10.3); Phosphorous 3.5 mg/dL (2.7-4.5); Potassium 4.3 mEq/L (3.5-5.1)
[2019-01-07] MEDS: Insulin LISPRO 300 UNITS/3 ML VIAL SQ SCH ×4 (08:40→22:01)
[2019-01-07] MEDS: hydrALAZINE 25 MG TABLET PO SCH ×3 (08:51→22:00)
[2019-01-07] MEDS: NIFEdipine XL (24 HR) 30 MG TAB.ER.24 PO SCH (08:51)
[2019-01-07] MEDS: Cholecalciferol (D-3) 1,000 UNIT (25MCG) TABLET PO SCH (08:51)
[2019-01-07] MEDS: cloNIDine HCl 0.1 MG TABLET PO SCH ×3 (08:51→22:01)
[2019-01-07] MEDS: Multivit/Ca/Min/Fe/FA 1 TAB TABLET PO SCH (08:51)
[2019-01-07] MEDS: Gabapentin 300 MG CAPSULE PO SCH (22:01)
[2019-01-08] MEDS: Levothyroxine 25 MCG TABLET PO SCH (03:59)
[2019-01-08] MEDS: *HR* OxyCODONE Immed Rel 5 MG TABLET PO PRN ×2 (03:59→18:10)
[2019-01-08 04:43] LABS: Basophils % 0.5 %; Eosinophils # 0.3 K/mcL (0.0-0.6); Eosinophils % 4.6 %; Hematocrit 31.6 % (35.3-44.9); Hemoglobin 9.6 g/dL (11.5-15.4); Immature Granulocytes % 0.5 % (0-4); Lymphocytes # 0.5 K/mcL (0.6-4.6); Lymphocytes % 8.8 %; Mean Corpuscular HGB Conc 30.4 g/dL (31.6-35.5); Mean Corpuscular Hemoglobin 30.3 pg (28.0-33.3); Mean Corpuscular Volume 99.7 fL (83.0-100.0); Mean Platelet Volume 10.3 fL (9.4-12.4); Monocytes # 0.8 K/mcL (0.0-1.3); Monocytes % 12.9 %; Neutrophils # 4.3 K/mcL (1.6-8.9); Platelet Count 107 K/mcL (140-400); Red Blood Count 3.17 M/mcL (3.82-4.97); Red Cell Distribution Width 17.1 % (11.5-14.5); Segmented Neutrophils % 72.7 %; White Blood Count 5.9 K/mcL (4.3-11.1)
[2019-01-08 04:55] LABS: Calcium 8.9 mg/dL (8.6-10.3); Potassium 4.4 mEq/L (3.5-5.1)
[2019-01-08] MEDS ORDERED: ceFAZolin 1,000 MG, Sodium Chloride IRRigation 1,000 ML IR ONE ×2 (06:00→16:11)
[2019-01-08] MEDS ORDERED: 0.9 % Sodium Chloride 250 ML IVC PRN ×2 (07:18→16:11)
[2019-01-08] MEDS ORDERED: *HR* Heparin 10,000 UNIT/10 ML VIAL IV PRN (07:18)
[2019-01-08] MEDS ORDERED: 0.9 % Sodium Chloride 1,000 ML PRIME SCH ×2 (07:30→16:11)
[2019-01-08] MEDS: Insulin LISPRO 300 UNITS/3 ML VIAL SQ SCH ×4 (08:03→22:50)
[2019-01-08] MEDS: cloNIDine HCl 0.1 MG TABLET PO SCH ×3 (08:14→19:03)
[2019-01-08] MEDS: NIFEdipine XL (24 HR) 30 MG TAB.ER.24 PO SCH (08:14)
[2019-01-08] MEDS: Multivit/Ca/Min/Fe/FA 1 TAB TABLET PO SCH (08:14)
[2019-01-08] MEDS: hydrALAZINE 25 MG TABLET PO SCH ×3 (08:15→19:03)
[2019-01-08] MEDS: Cholecalciferol (D-3) 1,000 UNIT (25MCG) TABLET PO SCH (08:15)
[2019-01-08] MEDS: 0.9 % Sodium Chloride 1,000 ML PRIME SCH (09:00)
[2019-01-08] MEDS ORDERED: Ondansetron 4 MG/2 ML VIAL ONE (11:30)
[2019-01-08] MEDS ORDERED: *HR* FentaNYL (PF) 100 MCG/2 ML VIAL ONE (11:30)
[2019-01-08] MEDS ORDERED: *HR* Propofol 200 MG/20 ML VIAL IVP ONE (11:30)
[2019-01-08] MEDS ORDERED: Neostigmine Methylsulfate 3 MG/3 ML SYRINGE ONE (11:30)
[2019-01-08] MEDS ORDERED: Dexamethasone 4 MG/ML VIAL ONE (11:30)
[2019-01-08] MEDS ORDERED: Lidocaine -MPF 2% 2 ML VIAL ONE (11:30)
[2019-01-08] MEDS ORDERED: Heparin 1,000 UNITS/500 mL 500 ML ONE (12:40)
[2019-01-08] MEDS ORDERED: Lidocaine 1% 20 ML MDV ONE (12:40)
[2019-01-08] MEDS ORDERED: Ropivacaine/PF 0.5% 30 ML VIAL ONE ×2 (12:44→13:00)
[2019-01-08] MEDS ORDERED: ROPIVACAINE/PF/NS 0.25% 1 EACH SYRINGE INTRAART ONE (12:44)
[2019-01-08] MEDS ORDERED: Lidocaine -MPF 2% 5 ML VIAL ONE (13:12)
[2019-01-08] MEDS ORDERED: ceFAZolin 2,000 MG in Water for inj. (sterile) 20 ML IVP ONE ×2 (14:32→16:11)
[2019-01-08] MEDS ORDERED: Propofol 500 MG/50 ML INFUS..BTL ONE (14:47)
[2019-01-08] MEDS ORDERED: *HR* Heparin 5,000 UNIT/ML VIAL ONE (15:08)
[2019-01-08] MEDS ORDERED: Dextrose Gel 15 GM/37.5 ML TUBE PO PRN ×2 (16:11)
[2019-01-08] MEDS ORDERED: D5% in Water 1,000 ML IVC PRN (16:11)
[2019-01-08] MEDS ORDERED: *HR* Dextrose 50 % in Water (Syg) 50 ML SYRINGE IVP PRN (16:11)
[2019-01-08] MEDS ORDERED: cloNIDine HCl 0.1 MG TABLET ONE (18:50)
[2019-01-08 19:15] LABS: Basophils % 0.4 %; Eosinophils % 0.1 %; Hematocrit 37.6 % (35.3-44.9); Immature Granulocytes % 0.8 % (0-4); Lymphocytes # 0.3 K/mcL (0.6-4.6); Lymphocytes % 3.9 %; Mean Corpuscular HGB Conc 30.3 g/dL (31.6-35.5); Mean Corpuscular Hemoglobin 30.2 pg (28.0-33.3); Mean Corpuscular Volume 99.5 fL (83.0-100.0); Mean Platelet Volume 10.8 fL (9.4-12.4); Monocytes # 0.1 K/mcL (0.0-1.3); Monocytes % 1.3 %; Neutrophils # 7.4 K/mcL (1.6-8.9); Platelet Count 108 K/mcL (140-400); Red Blood Count 3.78 M/mcL (3.82-4.97); Red Cell Distribution Width 17.1 % (11.5-14.5); Segmented Neutrophils % 93.5 %; White Blood Count 7.9 K/mcL (4.3-11.1)
[2019-01-08 19:20] LABS: Hemoglobin 11.4 g/dL (11.5-15.4)
[2019-01-08 19:31] LABS: Calcium 9.2 mg/dL (8.6-10.3); Magnesium 2.1 mg/dL (1.6-2.6); Potassium 5.2 mEq/L (3.5-5.1)
[2019-01-08 19:32] LABS: Troponin I 0.03 ng/mL (< 0.04)
[2019-01-08] MEDS ORDERED: cloNIDine HCl 0.1 MG TABLET PO SCH (21:00)
[2019-01-08] MEDS ORDERED: hydrALAZINE 25 MG TABLET PO SCH (21:00)
[2019-01-08] MEDS: Gabapentin 300 MG CAPSULE PO SCH (22:49)
[2019-01-09] MEDS: *HR* OxyCODONE Immed Rel 5 MG TABLET PO PRN ×2 (00:12→12:57)
[2019-01-09] MEDS: Levothyroxine 25 MCG TABLET PO SCH (06:25)
[2019-01-09] MEDS ORDERED: *HR* Heparin 10,000 UNIT/10 ML VIAL IV PRN (07:32)
[2019-01-09] MEDS ORDERED: 0.9 % Sodium Chloride 250 ML IVC PRN (07:32)
[2019-01-09] MEDS ORDERED: 0.9 % Sodium Chloride 1,000 ML PRIME SCH (07:45)
[2019-01-09] MEDS: Insulin LISPRO 300 UNITS/3 ML VIAL SQ SCH ×4 (08:10→20:35)
[2019-01-09 09:18] LABS: Basophils % 0.2 %; Hematocrit 32.4 % (35.3-44.9); Hemoglobin 9.9 g/dL (11.5-15.4); Immature Granulocytes % 0.4 % (0-4); Lymphocytes # 0.3 K/mcL (0.6-4.6); Lymphocytes % 6.2 %; Mean Corpuscular HGB Conc 30.6 g/dL (31.6-35.5); Mean Corpuscular Hemoglobin 30.1 pg (28.0-33.3); Mean Corpuscular Volume 98.5 fL (83.0-100.0); Mean Platelet Volume 11.1 fL (9.4-12.4); Monocytes # 0.5 K/mcL (0.0-1.3); Monocytes % 10.3 %; Platelet Count 125 K/mcL (140-400); Red Blood Count 3.29 M/mcL (3.82-4.97); Segmented Neutrophils % 82.9 %; White Blood Count 4.9 K/mcL (4.3-11.1)
[2019-01-09 09:37] LABS: Calcium 8.9 mg/dL (8.6-10.3); Potassium 4.7 mEq/L (3.5-5.1)
[2019-01-09] MEDS: cloNIDine HCl 0.1 MG TABLET PO SCH ×3 (11:39→20:34)
[2019-01-09] MEDS: hydrALAZINE 25 MG TABLET PO SCH ×3 (11:40→20:35)
[2019-01-09] MEDS: Cholecalciferol (D-3) 1,000 UNIT (25MCG) TABLET PO SCH (12:53)
[2019-01-09] MEDS: Multivit/Ca/Min/Fe/FA 1 TAB TABLET PO SCH (12:53)
[2019-01-09] MEDS: NIFEdipine XL (24 HR) 30 MG TAB.ER.24 PO SCH (12:53)
[2019-01-09] MEDS: Gabapentin 300 MG CAPSULE PO SCH (20:34)
[2019-01-10] MEDS: Levothyroxine 25 MCG TABLET PO SCH (05:42)
[2019-01-10] MEDS ORDERED: Acetaminophen IV 500 MG/50 ML INFUS..BTL IVPB ONE (06:32)
[2019-01-10 07:01] LABS: Basophils % 0.5 %; Eosinophils # 0.2 K/mcL (0.0-0.6); Eosinophils % 2.7 %; Hematocrit 29.1 % (35.3-44.9); Hemoglobin 9.1 g/dL (11.5-15.4); Immature Granulocytes % 0.3 % (0-4); Lymphocytes # 0.9 K/mcL (0.6-4.6); Lymphocytes % 13.4 %; Mean Corpuscular HGB Conc 31.3 g/dL (31.6-35.5); Mean Corpuscular Hemoglobin 30.6 pg (28.0-33.3); Mean Platelet Volume 11.7 fL (9.4-12.4); Monocytes # 0.9 K/mcL (0.0-1.3); Monocytes % 13.4 %; Neutrophils # 4.6 K/mcL (1.6-8.9); Platelet Count 116 K/mcL (140-400); Red Blood Count 2.97 M/mcL (3.82-4.97); Red Cell Distribution Width 17.1 % (11.5-14.5); Segmented Neutrophils % 69.7 %; White Blood Count 6.6 K/mcL (4.3-11.1)
[2019-01-10 07:10] LABS: Calcium 8.7 mg/dL (8.6-10.3); Magnesium 2.1 mg/dL (1.6-2.6); Phosphorous 3.8 mg/dL (2.7-4.5); Potassium 4.7 mEq/L (3.5-5.1)
[2019-01-10] MEDS: Insulin LISPRO 300 UNITS/3 ML VIAL SQ SCH ×4 (07:49→21:11)
[2019-01-10] MEDS: Cholecalciferol (D-3) 1,000 UNIT (25MCG) TABLET PO SCH (07:55)
[2019-01-10] MEDS: Multivit/Ca/Min/Fe/FA 1 TAB TABLET PO SCH (07:55)
[2019-01-10] MEDS: *HR* OxyCODONE Immed Rel 5 MG TABLET PO PRN ×2 (07:55→17:33)
[2019-01-10] MEDS ORDERED: 0.9 % Sodium Chloride 250 ML IVC PRN (08:20)
[2019-01-10] MEDS: hydrALAZINE 25 MG TABLET PO SCH ×3 (11:49→21:17)
[2019-01-10] MEDS: cloNIDine HCl 0.1 MG TABLET PO SCH ×4 (11:49→21:17)
[2019-01-10] MEDS: NIFEdipine XL (24 HR) 30 MG TAB.ER.24 PO SCH (12:16)
[2019-01-10] MEDS ORDERED: *HR* Propofol 200 MG/20 ML VIAL IVP ONE (14:24)
[2019-01-10] MEDS ORDERED: Lidocaine -MPF 2% 2 ML VIAL ONE (14:24)
[2019-01-10] MEDS: Gabapentin 300 MG CAPSULE PO SCH (21:17)
[2019-01-11] MEDS: Levothyroxine 25 MCG TABLET PO SCH (05:23)
[2019-01-11] MEDS: *HR* OxyCODONE Immed Rel 5 MG TABLET PO PRN ×2 (05:24→13:09)
[2019-01-11 06:35] LABS: Red Blood Count 3.07 M/mcL (3.82-4.97)
[2019-01-11 06:37] LABS: Hematocrit 30.6 % (35.3-44.9); Hemoglobin 9.3 g/dL (11.5-15.4); Immature Platelets 4.1 % (1.1-6.1); Mean Corpuscular HGB Conc 30.4 g/dL (31.6-35.5); Mean Corpuscular Hemoglobin 30.3 pg (28.0-33.3); Mean Corpuscular Volume 99.7 fL (83.0-100.0); Mean Platelet Volume 10.5 fL (9.4-12.4); Red Cell Distribution Width 16.7 % (11.5-14.5); White Blood Count 6.1 K/mcL (4.3-11.1)
[2019-01-11 07:39] LABS: Calcium 8.6 mg/dL (8.6-10.3); Potassium 4.4 mEq/L (3.5-5.1)
[2019-01-11] MEDS: hydrALAZINE 25 MG TABLET PO SCH (08:22)
[2019-01-11] MEDS: NIFEdipine XL (24 HR) 30 MG TAB.ER.24 PO SCH (08:22)
[2019-01-11] MEDS: Cholecalciferol (D-3) 1,000 UNIT (25MCG) TABLET PO SCH (08:23)
[2019-01-11] MEDS: cloNIDine HCl 0.1 MG TABLET PO SCH (08:23)
[2019-01-11] MEDS: Multivit/Ca/Min/Fe/FA 1 TAB TABLET PO SCH (08:23)
[2019-01-11] MEDS: Insulin LISPRO 300 UNITS/3 ML VIAL SQ SCH ×2 (08:24→12:08)
[2019-01-11] MEDS ORDERED: 0.9 % Sodium Chloride 250 ML IVC PRN (09:17)
[2019-01-11] MEDS ORDERED: *HR* Heparin 10,000 UNIT/10 ML VIAL IV PRN (09:17)
[2019-01-11 13:13] VITALS: BP 157/71
== END 2019-01-11 16:22 | DRG 264 ==
LOC: 2ANU 16:30 → EMEROOARM 16:30 → SUATTDRO 19:23 → 2ANU 19:58 → SUATTDRO 01-04 10:24 → UNDODISIN 01-11 15:11
PROVIDERS: ADMIT Internal Medicine; ATTEND Internal Medicine
PROC: IRPERMA (2019-01-05 12:00)
PROC: ENDOEDS (2019-01-10 14:20)

== ENCOUNTER 2019-10-20 13:21 | Inpatient (IN) ==
[2019-10-20 14:15] LABS: Hematocrit 30.3 % (35.3-44.9); Hemoglobin 9.5 g/dL (11.5-15.4); Mean Corpuscular HGB Conc 31.4 g/dL (31.6-35.5); Mean Corpuscular Hemoglobin 32.5 pg (28.0-33.3); Mean Corpuscular Volume 103.8 fL (83.0-100.0); Mean Platelet Volume 9.4 fL (9.4-12.4); Platelet Count 218 K/mcL (140-400); Red Blood Count 2.92 M/mcL (3.82-4.97); Red Cell Distribution Width 15.7 % (11.5-14.5); White Blood Count 7.8 K/mcL (4.3-11.1)
[2019-10-20 14:22] LABS: BUN/Creatinine Ratio 12 (6-26); Blood Urea Nitrogen 36 mg/dL (8-23); Calcium 9.2 mg/dL (8.6-10.3); Carbon Dioxide 29 mEq/L (23-29); Chloride 92 mEq/L (98-107); Glucose 125 mg/dL (70-105); Osmolality,Calculated 278 (280-300); Potassium 5.2 mEq/L (3.5-5.1); Sodium 129 mEq/L (136-145); eGFR For African Americans 19 (> 60); eGFR For Non-African Americans 16 (> 60)
[2019-10-20 14:23] LABS: Troponin I < 0.03 ng/mL (< 0.04)
[2019-10-20 14:33] LABS: Magnesium 2.3 mg/dL (1.6-2.6)
[2019-10-20 14:40] LABS: Activated Partial Thrombo Time 33.1 Seconds (26.0-36.0)
[2019-10-20] MEDS ORDERED: Naloxone 0.4 MG/ML INJ IVP PRN (15:05)
[2019-10-20] MEDS ORDERED: Dextrose Gel 15 GM/37.5 ML TUBE PO PRN ×2 (15:09)
[2019-10-20] MEDS ORDERED: D5% in Water 1,000 ML IVC PRN (15:09)
[2019-10-20] MEDS ORDERED: *HR* Dextrose 50 % in Water (Vial) 50 ML VIAL IVP PRN (15:09)
[2019-10-20 15:15] LABS: Bacteria,Urine Few per hpf (None-Few); Bilirubin,Urine Negative (Negative); Blood,Urine Negative (Negative); Clarity,Urine Turbid (Clear); Color,Urine Yellow (Yellow); Glucose,Urine (UA) Normal (Normal); Ketones,Urine Negative (Negative); Leukocyte Esterase,Urine Large (Negative); Nitrite,Urine Negative (Negative); PH,Urine 7.5 pH Units (5.0-8.0); Protein,Urine 50 mg/dL (Neg-Trace); RBC,Urine 0-3 per hpf (0-3); Specific Gravity,Urine 1.013 (1.010-1.025); Squamous Epithelial Cell,Urine Many per hpf (None-Few); Urobilinogen,Urine Normal (Normal)
[2019-10-20] MEDS ORDERED: Perflutren Lipid Microsphere 1.3 ML in 0.9 % Sodium Chloride 8.7 ML IVP PRN (15:44)
[2019-10-20] MEDS: Insulin LISPRO 300 UNITS/3 ML VIAL SQ SCH (17:35)
[2019-10-20] MEDS: Aspirin Enteric Coated 81 MG Tablet PO SCH (17:44)
[2019-10-20] MEDS: cefTRIAXone 1,000 MG in Water for inj. (sterile) 10 ML IVP SCH (17:44)
[2019-10-20] MEDS: *HR* OxyCODONE Immed Rel 5 MG TABLET PO PRN (18:03)
[2019-10-20 21:15] LABS: Hepatitis B Surface Antibody < 3.10 mIU/mL
[2019-10-20 21:26] LABS: Hepatitis B Surface Antigen Nonreactive (Nonreactive)
[2019-10-20] MEDS: hydrALAZINE 25 MG TABLET PO SCH (21:43)
[2019-10-20] MEDS: Gabapentin 300 MG CAPSULE PO SCH (21:44)
[2019-10-21] MEDS: *HR* OxyCODONE Immed Rel 5 MG TABLET PO PRN ×4 (00:29→20:44)
[2019-10-21 04:25] LABS: Basophils % 0.6 %; Eosinophils # 0.2 K/mcL (0.0-0.6); Eosinophils % 3.1 %; Hemoglobin 8.2 g/dL (11.5-15.4); Immature Granulocytes % 0.2 % (0-4); Lymphocytes # 0.6 K/mcL (0.6-4.6); Lymphocytes % 11.4 %; Mean Corpuscular HGB Conc 31.5 g/dL (31.6-35.5); Mean Corpuscular Hemoglobin 33.3 pg (28.0-33.3); Mean Corpuscular Volume 105.7 fL (83.0-100.0); Mean Platelet Volume 9.6 fL (9.4-12.4); Monocytes # 0.7 K/mcL (0.0-1.3); Monocytes % 13.4 %; Neutrophils # 3.9 K/mcL (1.6-8.9); Platelet Count 152 K/mcL (140-400); Red Blood Count 2.46 M/mcL (3.82-4.97); Red Cell Distribution Width 15.6 % (11.5-14.5); Segmented Neutrophils % 71.3 %; White Blood Count 5.4 K/mcL (4.3-11.1)
[2019-10-21 04:46] LABS: Albumin 3.5 g/dL (3.5-5.7); Albumin/Globulin Ratio 1.6 (1.1-2.2); Bilirubin,Total 0.4 mg/dL (0.3-1.0); Calcium 8.7 mg/dL (8.6-10.3); Chol/HDL Ratio 1.8 (0-4.9); Globulin 2.2 g/dL (2.4-3.5); Magnesium 2.2 mg/dL (1.6-2.6); Phosphorous 4.8 mg/dL (2.7-4.5); Potassium 4.7 mEq/L (3.5-5.1); Total Protein 5.7 g/dL (6.4-8.9)
[2019-10-21] MEDS: Insulin LISPRO 300 UNITS/3 ML VIAL SQ SCH ×3 (08:24→16:52)
[2019-10-21] MEDS: Aspirin Enteric Coated 81 MG Tablet PO SCH (08:26)
[2019-10-21] MEDS: allopurinoL 100 MG TABLET PO SCH (08:26)
[2019-10-21] MEDS: Metoprolol 100 MG TABLET PO SCH ×2 (08:27→20:44)
[2019-10-21] MEDS: hydrALAZINE 25 MG TABLET PO SCH ×3 (08:27→20:44)
[2019-10-21] MEDS: Furosemide 40 MG TABLET PO SCH (08:27)
[2019-10-21] MEDS: cefTRIAXone 1,000 MG in Water for inj. (sterile) 10 ML IVP SCH (08:27)
[2019-10-21] MEDS ORDERED: NIFEdipine XL (24 HR) 30 MG TAB.ER.24 PO SCH (09:00)
[2019-10-21] MEDS: Gabapentin 300 MG CAPSULE PO SCH (20:44)
[2019-10-22 02:11] LABS: Hematocrit 28.6 % (35.3-44.9); Hemoglobin 9.2 g/dL (11.5-15.4); Mean Corpuscular HGB Conc 32.2 g/dL (31.6-35.5); Mean Corpuscular Hemoglobin 33.5 pg (28.0-33.3); Mean Platelet Volume 9.4 fL (9.4-12.4); Platelet Count 158 K/mcL (140-400); Red Blood Count 2.75 M/mcL (3.82-4.97); Red Cell Distribution Width 15.2 % (11.5-14.5); White Blood Count 7.1 K/mcL (4.3-11.1)
[2019-10-22 02:27] LABS: Calcium 8.8 mg/dL (8.6-10.3); Potassium 4.8 mEq/L (3.5-5.1)
[2019-10-22] MEDS: *HR* OxyCODONE Immed Rel 5 MG TABLET PO PRN ×2 (03:12→12:31)
[2019-10-22] MEDS ORDERED: 0.9 % Sodium Chloride 250 ML IVC PRN (07:33)
[2019-10-22] MEDS ORDERED: *HR* Heparin 10,000 UNIT/10 ML VIAL IV PRN (07:33)
[2019-10-22] MEDS ORDERED: 0.9 % Sodium Chloride 1,000 ML PRIME SCH (07:45)
[2019-10-22 08:03] LABS: Estimated Average Glucose 88 mg/dl
[2019-10-22] MEDS: Insulin LISPRO 300 UNITS/3 ML VIAL SQ SCH ×2 (08:21→12:32)
[2019-10-22] MEDS: Metoprolol 100 MG TABLET PO SCH (08:22)
[2019-10-22 12:21] VITALS: BP 184/73
[2019-10-22] MEDS: Aspirin Enteric Coated 81 MG Tablet PO SCH (12:31)
[2019-10-22] MEDS: hydrALAZINE 25 MG TABLET PO SCH (12:31)
[2019-10-22] MEDS: Furosemide 40 MG TABLET PO SCH (12:31)
[2019-10-22] MEDS: allopurinoL 100 MG TABLET PO SCH (12:32)
[2019-10-22] MEDS: cefTRIAXone 1,000 MG in Water for inj. (sterile) 10 ML IVP SCH (12:39)
== END 2019-10-22 14:25 | disposition home or self-care (01) | DRG 56 ==
LOC: EMEROOARM 13:21 → 2ANU 13:21
PROVIDERS: ADMIT Internal Medicine; ATTEND Internal Medicine

== ENCOUNTER 2019-12-20 17:20 | Observation (INO) ==
[2019-12-20 18:08] LABS: Bacteria,Urine Moderate per hpf (None-Few); Bilirubin,Urine Small (Negative); Blood,Urine Moderate (Negative); Clarity,Urine Ex.Turbid (Clear); Color,Urine Dark-Yellow (Yellow); Glucose,Urine (UA) Normal (Normal); Ketones,Urine 10 mg/dL (Negative); Leukocyte Esterase,Urine Large (Negative); Mucus,Urine Few per lpf (None-Few); Nitrite,Urine Negative (Negative); Protein,Urine 100 mg/dL (Neg-Trace); Specific Gravity,Urine 1.016 (1.010-1.025); Squamous Epithelial Cell,Urine Moderate per hpf (None-Few); Urobilinogen,Urine >=8.0 mg/dL (Normal); WBC,Urine TNTC per hpf (0-3)
[2019-12-20] MEDS ORDERED: *HR* FentaNYL (PF) 100 MCG/2 ML VIAL IVP ONE (18:13)
[2019-12-20 18:56] LABS: Basophils % 0.3 %; Eosinophils % 0.1 %; Hematocrit 31.1 % (35.3-44.9); Hemoglobin 9.8 g/dL (11.5-15.4); Immature Granulocytes % 0.5 % (0-4); Lymphocytes # 0.2 K/mcL (0.6-4.6); Lymphocytes % 1.8 %; Mean Corpuscular HGB Conc 31.5 g/dL (31.6-35.5); Mean Corpuscular Hemoglobin 31.7 pg (28.0-33.3); Mean Corpuscular Volume 100.6 fL (83.0-100.0); Mean Platelet Volume 9.6 fL (9.4-12.4); Monocytes # 1.1 K/mcL (0.0-1.3); Monocytes % 8.3 %; Neutrophils # 11.6 K/mcL (1.6-8.9); Platelet Count 145 K/mcL (140-400); Red Blood Count 3.09 M/mcL (3.82-4.97); Red Cell Distribution Width 16.2 % (11.5-14.5); White Blood Count 13.1 K/mcL (4.3-11.1)
[2019-12-20 19:39] LABS: Alanine Aminotransferase 23 Units/L (7-52); Albumin/Globulin Ratio 1.5 (1.1-2.2); Alkaline Phosphatase 103 Units/L (34-104); Aspartate Amino Transferase 30 Units/L (13-39); BUN/Creatinine Ratio 13 (6-26); Bilirubin,Direct 0.3 mg/dL (0.0-0.2); Bilirubin,Indirect 0.6 mg/dL (0.0-1.0); Bilirubin,Total 0.9 mg/dL (0.3-1.0); Blood Urea Nitrogen 51 mg/dL (8-23); Calcium 9.5 mg/dL (8.6-10.3); Carbon Dioxide 30 mEq/L (23-29); Chloride 95 mEq/L (98-107); Globulin 2.7 g/dL (2.4-3.5); Glucose 154 mg/dL (70-105); Lipase < 3 Units/L (11-82); Osmolality,Calculated 293 (280-300); Potassium 5.9 mEq/L (3.5-5.1); Sodium 133 mEq/L (136-145); Total Protein 6.7 g/dL (6.4-8.9); eGFR For African Americans 13 (> 60); eGFR For Non-African Americans 11 (> 60)
[2019-12-20] MEDS ORDERED: Piperacillin/Tazobactam 3.375 GM in 0.9 % Sodium Chloride Mini Bag 100 ML IVPB ONE (19:44)
[2019-12-20] MEDS ORDERED: Insulin Human Regular 10 UNIT in 0.9 % Sodium Chloride 10 ML IV ONE (19:47)
[2019-12-20] MEDS ORDERED: Furosemide 40 MG/4 ML VIAL IVP ONE (19:47)
[2019-12-20] MEDS ORDERED: *HR* Dextrose 50 % in Water (Vial) 50 ML VIAL IVP ONE (19:47)
[2019-12-20] MEDS ORDERED: Albuterol 2.5 MG/3 ML NEBULIZER IH ONE (19:48)
[2019-12-20] MEDS ORDERED: *HR* Promethazine 25 MG/ML VIAL IVP PRN (20:19)
[2019-12-20] MEDS ORDERED: Acetaminophen 325 MG TABLET PO PRN (20:19)
[2019-12-20] MEDS ORDERED: Naloxone 0.4 MG/ML INJ IVP PRN (20:19)
[2019-12-20] MEDS ORDERED: Acetaminophen IV 1,000 MG/100 ML INFUS..BTL IVPB ONE (22:08)
[2019-12-21 01:36] LABS: Hematocrit 26.8 % (35.3-44.9); Hemoglobin 8.4 g/dL (11.5-15.4); Mean Corpuscular HGB Conc 31.3 g/dL (31.6-35.5); Mean Corpuscular Hemoglobin 31.2 pg (28.0-33.3); Mean Corpuscular Volume 99.6 fL (83.0-100.0); Mean Platelet Volume 9.9 fL (9.4-12.4); Platelet Count 126 K/mcL (140-400); Red Blood Count 2.69 M/mcL (3.82-4.97); Red Cell Distribution Width 16.1 % (11.5-14.5); White Blood Count 8.2 K/mcL (4.3-11.1)
[2019-12-21 02:00] LABS: Calcium 8.8 mg/dL (8.6-10.3); Magnesium 2.1 mg/dL (1.6-2.6); Phosphorous 4.8 mg/dL (2.7-4.5); Potassium 4.8 mEq/L (3.5-5.1)
[2019-12-21] MEDS ORDERED: Piperacillin/Tazobactam 3.375 GM in 0.9 % Sodium Chloride Mini Bag 100 ML IVPB SCH (06:00)
[2019-12-21 07:26] LABS: Hepatitis B Surface Antibody < 3.10 mIU/mL
[2019-12-21 07:37] LABS: Hepatitis B Surface Antigen Nonreactive (Nonreactive)
[2019-12-21] MEDS ORDERED: 0.9 % Sodium Chloride 250 ML IVC PRN (07:58)
[2019-12-21] MEDS ORDERED: *HR* Heparin 10,000 UNIT/10 ML VIAL IV PRN ×2 (07:58)
[2019-12-21] MEDS ORDERED: 0.9 % Sodium Chloride 1,000 ML PRIME SCH (08:00)
[2019-12-21 17:24] VITALS: BP 167/66
== END 2019-12-21 17:08 | disposition home or self-care (01) ==
LOC: EMEROOARM 17:20 → 2ANU 17:20
PROVIDERS: ADMIT Internal Medicine; ATTEND Internal Medicine